=== PATIENT | male | born 1935 | race Caucasian/White ===

== ENCOUNTER 2023-06-16 10:10 | Day surgery (SDC) | payer MEDICARE, SELFPAY ==
[2023-06-03 10:28] VITALS: BMI 31.9
[2023-06-03 10:59] LABS: % Basophils 0.4 % (0-2); % Eosinophils 1.5 % (0-6); % Immature Granulocytes 0.4 % (0-0.5); % Lymphocytes 12.2 % (20.5-51.1); % Monocytes 7.7 % (1.7-9.3); % Neutrophils 77.8 % (42.2-75.2); Absolute Eosinophils 0.1 10^3/uL (0-0.7); Absolute Lymphocytes 1.1 10^3/uL (1.2-3.4); Absolute Monocytes 0.7 10^3/uL (0.1-0.6); Absolute Neutrophils 7.1 10^3/uL (1.4-6.5); Hematocrit 42.8 % (39.0-52.0); Hemoglobin 14.9 g/dL (13.0-18.0); Mean Corp Hgb Conc. 34.8 g/dL (33.0-37.0); Mean Corpuscular Hgb 31.6 pg (27.0-31.0); Mean Corpuscular Volume 90.9 fL (80.0-94.0); Mean Platelet Volume 9.2 fL (7.4-10.4); Nucleated Red Blood Cells % 0 % (-); Platelet Count 241 10^3/uL (130-400); Red Blood Cell Count 4.71 10^6/uL (4.70-6.10); Red Cell Dist. Width 14.3 % (11.5-14.5); White Blood Cell Count 9.1 10^3/uL (4.8-10.8)
[2023-06-03 11:08] LABS: INR 1.29; PT 16.2 Sec (11.4-14.6)
[2023-06-03 11:17] LABS: ALT (SGPT) 21 U/L (0-50); AST (SGOT) 22 U/L (17-59); Albumin 4.3 g/dl (3.5-5.0); Alkaline Phosphatase 78 U/L (38-126); Blood Urea Nitrogen 20 mg/dl (9-20); Calcium 9.6 mg/dl (8.4-10.2); Carbon Dioxide 27 mmol/L (22-30); Chloride 106 mmol/L (98-107); Estimated Creatinine Clearance 66 ml/min; Glucose 72 mg/dl (70-99); Potassium 4.1 mmol/L (3.5-5.1); Sodium 136 mmol/L (135-145); Total Bilirubin 0.8 mg/dl (0.2-1.3); Total Protein 7.5 g/dl (6.3-8.2); eGFR > 60.00
[2023-06-16] VITALS (9 sets, daily range): BP systolic 97–144; BP diastolic 57–86; BMI 31.0
--- NOTE | 2023-06-16 16:17 | ITS.CL.PACE ---
Senior Service Technician - Pacemaker Implant
Pacemaker Implant
Procedure Report:
PACEMAKER IMPLANT REPORT
Primary Care Provider: Dr Les Sexton
Primary meter mechanic: Dr Manpreet Samson
Date of Procedure: May 27, 2023
Procedure:
Implantation of dual-chamber permanent pacemaker utilizing the left bundle branch for conduction system pacing
Indication/Diagnosis:
Non-reversible symptomatic bradycardia due to sinus node dysfunction and second atrioventricular block.
History significant for paroxysmal atrial fibrillation, typical atrial flutter, chronic heart failure with preserved ejection fraction, history of VTE (DVT and PE), polymyalgia rheumatica, sick sinus syndrome, symptomatic bradycardia, obstructive
sleep apnea but patient has not undergone sleep testing, pulmonary hypertension, mixed hypercholesterolemia, primary hypertension, and cognitive impairment, bundle branch block, first-degree AV block, episodes of second-degree type I AV block along
with symptomatic pauses.
He is referred from Dr. Manpreet Samson for implantation of dual-chamber permanent pacemaker.
After informed consent was obtained, 'time out' was called and confirmed, the patient was prepped and draped in a sterile fashion. Lidocaine with epi was used for local anesthesia. Central venous access was obtained via subclavian venipuncture. An
incision was made along the left chest and a pre-pectoral pocket was formed. Using a Seldinger technique and peel-away sheaths, the pacing leads were placed under fluoroscopic guidance.
Fluoroscopy was used to determine likely anatomic site for left bundle branch pacing. The Medtronic C315 sheath was used to deliver the Medtronic 3830 Selectsecure pacing lead with the helix exposed just exposed from the sheath tip during continuous
monitoring when pacemapping the septum during gentle clockwise rotation to obtain a paced QRS morphology of a W pattern in lead V1. Once the suspected optimal site was identified, lead deployment was performed with several rapid rotations as paced
QRS morphology was intermittently monitored until a paced QRS complex in lead V1 demonstrated development of an R wave (Qr)..
Unipolar pacing impedance initially dropped by approximately 100-200 ohms suggesting it had reached the left ventricular subendocardial and with further advancement pacing impedance edvi to a peak of 1300 ohms.
Stable VEgm positive injury current is present throughout lead position and at end of case.
Final unipolar pacing impedance is 1300 Ohms
Unipolar pacing threshold is stable at 2 V @ 0.4 ms.
The patient had pre-existing right bundle branch block morphology at baseline with QRS dur = 136 ms.
Final conduction system paced QRS complex duration is 108 ms
LVAT is 92 ms and peak V5 -> peak V1 timing is 45 ms
Right atrial lead was placed at the RAA.
Once testing (see below) showed adequate and stable function, the leads were secured using the suture sleeves. The pocket was liberally irrigated with antibiotic solution. The leads were connected to the generator header and the leads and
generator were placed within the pocket. Fluoroscopy confirmed stable lead position. The pocket was closed in the typical fashion.
Fluoroscopy was used to guide lead placement.
IMPLANTS:
Medtronic [id number], Left Pectoral
RA: Medtronic 5076-45, RAA
RV: Medtronic [id number], Interventricular septum at LBB
DEVICE TESTING:
Sensing: RA 1.4 mV, RV 10 mV
Capture: RA 1 V@0.4ms, RV 1.75 V@0.4ms
Ohms: RA 475, RV 1349
FINAL PROGRAMMING
Wil Pacing: DDDR 60-130 ppm
COMPLICATIONS:
None
CONCLUSIONS:
1: Successful implant of dual chamber permanent pacemaker utilizing Left Bundle Branch conduction system capture for pacing. Overall findings are most consistent with Left Ventricular Septal capture. Note that both LBB capture and Left Ventricular
Septal capture has been associated with improved left ventricular systolic function via cardiac resynchronization.
RECOMMENDATIONS:
1. Post-op care (tele, CXR, IV abx)
2. In-Office wound check in 5-7 days
Copy to:
Dr Les Sexton
Dr Manpreet Samson
--- NOTE | 2023-06-16 17:01 | PTCARENOTE ---
Patient admitted after PPM placement left upper chest. Pressure dressing left upper chest is dry and intact. Patient very upset upon admission to the unit. Complained about having post EKG done, need for telemetry monitoring and the monitoring of
his VS. All purpose of interventions explained to the patient. Telephoned the patient's and she stated her was upset that he had to stay over. Assisted the patient to the side of the bed and he used the urinal and voided qs. Telephoned
the patient's in his room so he could speak with her. Call eubanks within reach, dinner ordered for the patient.
[2023-06-16] MEDS: DIOVAN 80 MG PO (20:34)
[2023-06-16] MEDS: ANCEF 5 IV (20:36)
[2023-06-16] MEDS: FLUSH (NSS) 1 FLUSH IV (20:37)
[2023-06-17] MEDS: REFRESH EYE DROPS (PF) 1 DROPS OPHTH (02:02)
[2023-06-17 03:38] VITALS: BP 138/78
[2023-06-17] MEDS: ANCEF 5 IV (03:45)
[2023-06-17] MEDS: FLUSH (NSS) 1 FLUSH IV ×2 (03:46→09:24)
[2023-06-17 04:34] LABS: Hematocrit 41.3 % (39.0-52.0); Hemoglobin 14.2 g/dL (13.0-18.0); Mean Corp Hgb Conc. 34.4 g/dL (33.0-37.0); Mean Corpuscular Hgb 31.1 pg (27.0-31.0); Mean Corpuscular Volume 90.4 fL (80.0-94.0); Platelet Count 190 10^3/uL (130-400); Red Blood Cell Count 4.57 10^6/uL (4.70-6.10); Red Cell Dist. Width 13.9 % (11.5-14.5); White Blood Cell Count 7.7 10^3/uL (4.8-10.8)
[2023-06-17 05:14] LABS: Blood Urea Nitrogen 18 mg/dl (9-20); Calcium 9.4 mg/dl (8.4-10.2); Carbon Dioxide 25 mmol/L (22-30); Chloride 103 mmol/L (98-107); Estimated Creatinine Clearance 80 ml/min; Glucose 93 mg/dl (70-99); Magnesium 1.9 mg/dl (1.6-2.3); Potassium 4.2 mmol/L (3.5-5.1); Sodium 136 mmol/L (135-145); eGFR > 60.00
[2023-06-17 07:02] VITALS: BP 130/80
[2023-06-17 08:00] VITALS: BMI 31.0
--- NOTE | 2023-06-17 08:49 | CM ---
Reviewed chart. Met with Mr. Rodríguez to review discharge plans. He states prior to admission he resides with his spouse in a two story home with three steps to enter. He states he has a first floor set-up. He states prior to admission he
ambulates with a single point cane. He states he has a single point cane at home and no other DME in the home. He states he has a prescription plan with [facility] and [facility] and [facility]. The discharge plan is to return home
with his spouse when medically stable.
--- NOTE | 2023-06-17 08:57 | W.PN.CARDCBS ---
Today's Communication / Plan
-
post DC PPM
stable for d/c home today
Impression / Plan
-
Primary Care Provider: Dr Les Sexton
Primary mason apprentice: Dr Manpreet Samson
Impression:
Symptomatic bradycardia/SSS
HTN
HLD
Chronic HFpEF 55-60%
PMR
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
Prostate Cancer with radical prostatectomy
former smoker
06/16/23 Procedure:
Implantation of dual-chamber permanent pacemaker utilizing the left bundle branch for conduction system pacing�
Plan:
post DC PPM, site stable
tele AV dual paced
CXR no PTX
Hold OAC resume on evening Xarelto
continue Amiodarone
Activity restrictions reviewed
inc check 1 week
home today
Progress Note - Carbon Rod Inserter
Subjective
Date of Service: June 17, 2023
no cp, sob
Objective
Labs:
06/17/23 03:44
06/17/23 03:44
Labs
Hgb 14.2 g/dL (13.0-18.0) 06/17/23 03:44
Hct 41.3 % (39.0-52.0) 06/17/23 03:44
Plt Count 190 10^3/uL (130-400) 06/17/23 03:44
PT 16.2 Sec (11.4-14.6) H 06/03/23 10:43
INR 1.29 06/03/23 10:43
Sodium 136 mmol/L (135-145) 06/17/23 03:44
Potassium 4.2 mmol/L (3.5-5.1) 06/17/23 03:44
BUN 18 mg/dl (9-20) 06/17/23 03:44
Creatinine 0.9 mg/dL (0.7-1.3) 06/17/23 03:44
Glucose 93 mg/dl (70-99) 06/17/23 03:44
Vital Signs and I&O:
Vital Signs
Temp Pulse Resp BP Pulse Ox
98.2 F 72 16 130/80 96
06/17/23 07:01 06/17/23 07:30 06/17/23 07:01 06/17/23 07:02 06/17/23 07:01
Vital Signs
Temp Pulse Resp BP Pulse Ox
98.2 F 72 16 130/80 96
06/17/23 07:01 06/17/23 07:30 06/17/23 07:01 06/17/23 07:02 06/17/23 07:01
Intake & Output
06/15/23 06/16/23 06/17/23 06/18/23
06:59 06:59 06:59 06:59
Intake Total 480 / 480
Output Total 1550 / 1550
Balance -1070 / -1070
Physical Exam
Physical Exam
NAD, AOX3
S1, s2, RRR
CTAB, non labored, no wheeze
SNTND bsx4
L CW Aqucel dressing with 2 small marked areas of drainage, no HT
--- NOTE | 2023-06-17 09:14 | PTCARENOTE ---
Received patient this morning sitting oob in the chair with assistance of PCT. Seen by cardiology, pressure dressing removed from left chest wall. Aquacel dressing is dry and intact. Patient for discharge home today.
[2023-06-17] MEDS: DIOVAN 80 MG PO (09:23)
[2023-06-17] MEDS: PACERONE 100 MG PO (09:23)
[2023-06-17] MEDS: ALDACTONE 12.5 MG PO (09:24)
--- NOTE | 2023-06-17 10:24 | W.DS.TRANS ---
DC Summary - Telephone Engineer
-
Discharge Instructions:
Discharge Diagnosis/Procedures Pacemaker implant
Diet Low Cholesterol
Driving Restrictions No driving for 1 week
Bathing Restrictions OK to Shower
Instructions:
Stand-Alone Forms: DC Inst - Implanted Device
Changes to Home Medications: No
Discharge Medications:
DC Medications w/original date entered in [email or web address]
rivaroxaban 20 mg tablet (Xarelto) 20 mg PO QPM Blood clot prevention/tx 09/09/21
ascorbic acid (vitamin C) 500 mg tablet 500 mg PO BID Supplement 05/07/22
cholecalciferol (vitamin D3) 125 mcg (5,000 unit) tablet (Vitamin D3) 125 mcg PO QPM Supplement 07/29/22
valsartan 80 mg tablet 80 mg PO BID Blood pressure 07/29/22
Saccharomyces boulardii 250 mg capsule (Florastor) 250 mg PO DAILY Supplement 10/30/22
cranberry 500 mg capsule 500 mg PO BID Supplement 10/30/22
spironolactone 25 mg tablet 12.5 mg PO DAILY Blood Pressure 10/30/22
acetaminophen 325 mg tablet 650 mg PO Q4HPRN PRN mild pain/OTERO/temp> 100.4F #0 tabs 03/28/23
amiodarone 100 mg tablet 100 mg PO DAILY 05/29/23
omega 2-kyb-vsm-fish oil 1,200 mg (144 mg-216 mg) capsule (Fish Oil) 1 cap PO QPM 05/29/23
quercetin 500 mg capsule 500 mg PO QPM 06/16/23
Home Medication Changes
Pending Results: No
--- NOTE | 2023-06-17 10:43 | PTCARENOTE ---
Reviewed discharge instructions with the patient and his and they state their understanding. Reinforced activity restrictions, patient wished to wear immobilizer home and I showed his how to place it and encouraged him to wear it at
bedtime. assisted the patient with dressing and he was discharged home with his .
== END 2023-06-17 10:56 | disposition home or self-care (01) ==
LOC: CATH 10:10
PROVIDERS: Internal Medicine Cardiovascular Disease; Nurse Practitioner; ATTENDING PHYSICIAN Internal Medicine Cardiovascular Disease; FAMILY PHYSICIAN Internal Medicine Geriatric Medicine
DX: I48.0 Paroxysmal atrial fibrillation (principal); I11.0 Hypertensive heart disease with heart failure; E78.5 Hyperlipidemia, unspecified; I50.30 Unspecified diastolic (congestive) heart failure; M35.3 Polymyalgia rheumatica; M19.90 Unspecified osteoarthritis, unspecified site; Z86.718 Personal history of other venous thrombosis and embolism; Z87.891 Personal history of nicotine dependence; Z85.46 Personal history of malignant neoplasm of prostate; R26.9 Unspecified abnormalities of gait and mobility; Z86.711 Personal history of pulmonary embolism; Z79.01 Long term (current) use of anticoagulants; I49.5 Sick sinus syndrome; I44.1 Atrioventricular block, second degree; I48.3 Typical atrial flutter; I50.32 Chronic diastolic (congestive) heart failure; I27.20 Pulmonary hypertension, unspecified; E78.00 Pure hypercholesterolemia, unspecified; I45.10 Unspecified right bundle-branch block; R06.02 Shortness of breath; R53.83 Other fatigue; G31.84 Mild cognitive impairment of uncertain or unknown etiology
CPT/HCPCS: 33208; 36415; 71045; 80048; 80053; 83735; 85025; 85027; 85610; 93005; C1769; C1785; C1887; C1892; C1898

== ENCOUNTER → 2023-08-14 | Outpatient (REF) | payer MEDICARE, SELFPAY | LOC: DHSLP | PROVIDERS: ATTENDING PHYSICIAN Internal Medicine Cardiovascular Disease; FAMILY PHYSICIAN Internal Medicine Geriatric Medicine | DX: G47.33 Obstructive sleep apnea (adult) (pediatric) (principal) | CPT/HCPCS: 95800 ==

== ENCOUNTER → 2024-02-03 12:12 | Outpatient (REF) | payer MEDICARE, SELFPAY | LOC: RAD 12:12 | PROVIDERS: ATTENDING PHYSICIAN Internal Medicine Cardiovascular Disease; PRIMARYCARE PHYSICIAN Internal Medicine Geriatric Medicine | DX: I48.0 Paroxysmal atrial fibrillation (principal) | CPT/HCPCS: 71046 ==

== ENCOUNTER 2024-02-05 13:31 | Inpatient (IN) | payer MEDICARE, SELFPAY ==
[2024-02-05] VITALS (8 sets, daily range): BP systolic 105–148; BP diastolic 55–67; BMI 32.2; BMI 32.7
[2024-02-05 09:31] LABS: % Basophils 0.3 % (0-2); % Eosinophils 0.4 % (0-6); % Immature Granulocytes 0.5 % (0-0.5); % Lymphocytes 2.3 % (20.5-51.1); % Neutrophils 94.5 % (42.2-75.2); Absolute Eosinophils 0.1 10^3/uL (0-0.7); Absolute Immature Granulocytes 0.1 10^3/uL (0-0.05); Absolute Lymphocytes 0.3 10^3/uL (1.2-3.4); Absolute Monocytes 0.2 10^3/uL (0.1-0.6); Absolute Neutrophils 10.9 10^3/uL (1.4-6.5); Hematocrit 39.9 % (39.0-52.0); Hemoglobin 14.2 g/dL (13.0-18.0); Mean Corp Hgb Conc. 35.6 g/dL (33.0-37.0); Mean Corpuscular Hgb 32.6 pg (27.0-31.0); Mean Corpuscular Volume 91.5 fL (80.0-94.0); Mean Platelet Volume 9.4 fL (7.4-10.4); Nucleated Red Blood Cells % 0 % (-); Platelet Count 174 10^3/uL (130-400); Red Blood Cell Count 4.36 10^6/uL (4.70-6.10); Red Cell Dist. Width 13.2 % (11.5-14.5); White Blood Cell Count 11.5 10^3/uL (4.8-10.8)
[2024-02-05 09:40] LABS: Urine Albumin Trace (Neg - Trace); Urine Bilirubin Negative (Negative); Urine Character Clear (Clear); Urine Color Yellow; Urine Glucose Negative (Negative); Urine Ketone Negative (Negative); Urine Leukocyte Negative (Negative); Urine Nitrite Negative (Negative); Urine Occult Blood Negative (Negative); Urine Urobilinogen Negative (Neg - 1+)
[2024-02-05 09:46] LABS: ALT (SGPT) 21 U/L (0-50); AST (SGOT) 24 U/L (17-59); Albumin 4.4 g/dl (3.5-5.0); Alkaline Phosphatase 76 U/L (38-126); Blood Urea Nitrogen 29 mg/dl (9-20); Calcium 9.4 mg/dl (8.4-10.2); Carbon Dioxide 20 mmol/L (22-30); Chloride 106 mmol/L (98-107); Estimated Creatinine Clearance 65 ml/min; Glucose 95 mg/dl (70-99); Potassium 4.4 mmol/L (3.5-5.1); Sodium 140 mmol/L (135-145); Total Bilirubin 0.9 mg/dl (0.2-1.3); Total Protein 7.4 g/dl (6.3-8.2); eGFR > 60.00
[2024-02-05 10:03] LABS: Lactic Acid 1.7 mmol/L (0.7-2.0)
[2024-02-05] MEDS: TYLENOL 1000 MG PO (10:13)
--- NOTE | 2024-02-05 10:15 | ED.GENMED ---
History of Present Illness
General
Chief Complaint: Fever
Source: patient
Exam Limitations: none
Time Seen by Provider: 02/05/24 09:12
Nursing documentation reviewed up to this point in time: agreed with
History of Present Illness
History of Present Illness:
89-year-old male past medical history of A-fib currently on Xarelto, CHF, hypertension hyperlipidemia presenting to the emergency department today with concerns of shaking chills of the night last night a few hours prior to arrival. Does have
history of UTIs denies specific urinary symptoms also feels generally weak unable to stand up and walk today. Denies specific cough chest pain shortness of breath numbness weakness abdominal pain did have a few episodes of vomiting prior to arrival.
Past History
Past History
ED Past Medical History: Arrthythmia, Cancer (Prostate CA), CHF, HTN and Other (DVT, PE, COVID-19 URI April 2022)
ED Past Surgical History: Orthopedic (Bilateral knee replacements) and Other (Hernia repair, Prostatectomy, Left lid lid loading ( weights to help make the eye lid close)
Social History
Tobacco: Former smoker
Alcohol: Daily
Personal:
Living: with family
Employment: Retired
Review of Systems
Review of Systems
Allergies reviewed?: Yes
All Other Systems: ROS reviewed and negative except as documented in HPI and ROS
Phy Exam
Physical Exam
Physical Exam:
GENERAL: Alert , in no apparent distress
EYE: pupils equal and reactive
NECK: Supple, no significant adenopathy.
ENT: o/p clr, mmm.
CARDIAC: Regular rate and rhythm .
LUNGS: Clear breath sounds bilaterally, no acute respiratory distress, no wheezes/rales/rhonchi
ABDOMEN: Soft, without focal tenderness, no r/g, no cvat
NEUROLOGICAL: Alert and oriented, no focal neuro deficits
SKIN: Warm and dry, skin intact.
MUSCULOSKELETAL: No edema, well perfused.
PSYCH: Normal and appropriate interaction.
Course
Orders/Labs/Results
Orders:
Orders
02/05/24 09:23
Complete Blood Count/With Diff Urgent
Comprehensive Metabolic Panel Urgent
Lactic Acid Urgent
Urinalysis Reflex To Culture Urgent
Date Specimen was Collected: 02/05/24
Time Specimen was Collected: 09:22
02/05/24 09:53
COVID-19 Antigen Urgent
Source: Nasal Swab
Influenza A+B Rapid Molecular Urgent
FRANCO Source: Nasal Swab
Specimen Description:
02/05/24 10:05
Blood Culture Urgent
FRANCO Source: Blood/Venous
Specimen Description:
02/05/24 10:10
Acetaminophen [Tylenol] 1,000 mg PO NOW STA
02/05/24 10:14
Blood Culture Routine
FRANCO Source: Blood/Venous
Specimen Description:
02/05/24 10:27
0.9% Sodium Chloride 500 ml [Nss] 500 ml IV BOLUS
02/05/24 10:32
Chest [CR Chest - 2 Views ] Urgent
Comment:
Reason For Exam: fever
02/05/24 11:33
Azithromycin 500 mg/250 ml [Zithromax Infusion] 500 mg in 250 ml IV NOW
CefTRIAXone [Rocephin] 2,000 mg IV NOW STA
02/05/24 11:34
EKG [Electrocardiogram (*1)] Urgent
Reason for Study: Fatigue / Weakness
EKG- Treatment ONCE
Abnormal Lab Results
02/05/24
09:23
WBC 11.5 H 10^3/uL
(4.8-10.8)
RBC 4.36 L 10^6/uL
(4.70-6.10)
MCH 32.6 H pg
(27.0-31.0)
Abs Immat Gran (auto) 0.1 H 10^3/uL
(0-0.05)
Absolute Neuts (auto) 10.9 H 10^3/uL
(1.4-6.5)
Absolute Lymphs (auto) 0.3 L 10^3/uL
(1.2-3.4)
Neutrophils % 94.5 H %
(42.2-75.2)
Lymphocytes % 2.3 L %
(20.5-51.1)
Carbon Dioxide 20 L mmol/L
(22-30)
BUN 29 H mg/dl
(9-20)
02/05/24 09:23
02/05/24 09:23
Vital Signs
Initial and Last Documented VS:
Initial Vital Signs
BP
145/64
02/05/24 09:11
Last Documented Vital Signs
Temp Pulse Resp BP Pulse Ox
99.1 F 70 32 117/60 94
02/05/24 12:01 02/05/24 12:00 02/05/24 12:00 02/05/24 11:00 02/05/24 12:00
MDM/Problems Addressed
MDM/Problems Addressed:
89-year-old male presenting to the emergency department today with concerns of fevers chills generalized weakness over the past few hours. Upon arrival patient is febrile but otherwise vital signs are normal. Patient does have a slight white count
of 11.5 and a left shift. Otherwise labs unremarkable urinalysis without signs of infection. Chest x-ray showing possible pneumonia which is a new finding from previous x-ray that was performed just a few days ago. Concerning this plan to treat
with IV antibiotics and admit for further management.
*Critical Care Note
Total Time (30-74mins, 75-104mins- exclusive of procedures): Not Applicable
ED Attending Note
-
Portions of this chart may have been created with voice recognition software.� Occasional wrong word or��sound alike� substitutions may have occurred due to the inherent limitations of voice recognition software.
Discharge Plan
Departure
Patient Disposition: Admit
Date of Disposition: 02/05/24
Time of Disposition: 12:37
Admit to: Med/Surg
Admit to doctor: Cindy
Presentation/result/management discussed w/ accepting MD/DO: Hospitalist
Patient with high blood pressure during this ER visit?: No
Condition: Good
Covid-19: Not Applicable
Discharge Problem:
Pneumonia
Prescriptions:
No Action
Xarelto 20 MG tablet
20 mg PO QPM
ascorbic acid (vitamin C) 500 mg Tablet
500 mg PO BID
valsartan 80 mg Tablet
80 mg PO BID
cholecalciferol (vitamin D3) [Vitamin D3] 125 mcg (5,000 unit) Tablet
125 mcg PO QPM
spironolactone 25 mg tablet
12.5 mg PO DAILY
cranberry 500 mg Capsule
500 mg PO BID
amiodarone 100 mg Tablet
100 mg PO DAILY
omega 2-pnx-xmz-fish oil [Fish Oil] 1,200 (144-216) mg Capsule
1 cap PO QPM
quercetin 500 mg Capsule
500 mg PO QPM
bumetanide [Bumex] 1 mg Tablet
1 mg PO DAILY
Referrals:
Les Heredia MD [Family Provider] -
Interventions
Interventions:
*Risk Screen - Suicide Last Done: 02/05/24 09:21
*General Assessment Last Done: 02/05/24 09:21
*Neglect/Abuse Screening Last Done: 02/05/24 09:21
*ED COVID-19 Vaccine History Last Done: 02/05/24 09:20
ED- Neurological Assessment Last Done: 02/05/24 09:21
ED-Skin Assessment Last Done: 02/05/24 09:21
Discharge Date and Time
Print Language: KINYARWANDA
[2024-02-05] MEDS: NSS 500 IV (10:34)
[2024-02-05 10:42] LABS: COVID-19 Antigen Negative (Negative)
[2024-02-05] MEDS: ZITHROMAX INFUSION 250 IV (11:55)
[2024-02-05] MEDS: ROCEPHIN 2000 MG IV (11:55)
--- NOTE | 2024-02-05 12:35 | HPS.HSE ---
Family Physician
-
Family Physician: Les Heredia
Chief Complaint
-
Rigors 3 AM
History of Present Illness
89-year-old male complaining of shaking chills at 3 AM. He also reports feeling weak with difficulty standing up and walking today. He reports he has a chronic cough. He did cough while I was in the room examining him and had a wet sound. He has
generalized weakness with difficulty turning in bed he normally walks with a cane. He denies sore throat, headache, chest pain, palpitations, shortness of breath, abdominal pain, nausea, vomiting, diarrhea, urinary symptoms. He has past medical
history of A-fib on Xarelto, CHFpEF 55-60%, pacemaker dual-chamber 06/16/2023, HTN, prostate cancer with radical prostatectomy, recurrent UTIs, DVT/PE, COVID-08 May 2022, former smoker, prior alcohol abuse 1.5 years ago.
Medical History
Past Medical History
Past Medical History: Reports Other
Additional Past Medical History:
A-fib on Xarelto
CHFpEF 55-60%
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
HTN
Daily alcohol use
DVT/PE
Prostate cancer with radical prostatectomy
recurrent UTIs
COVID-08 May 2022
former smoker,
Past Surgical History: Reports Other
Additional Past Surgical History:
Bilateral knee replacements
Hernia repair
Prostatectomy
Left eyelid loading surgery to help lid close
Social History
Tobacco: Former Smoker (10 years 1/2 ppd quit 50 years ago)
Alcohol: Former (stopped 1.5 years ago)
Drug: None
Family History
Family History: Other (Father complications COPD, alcohol abuse mother unsure)
Allergies / Home Medications
Allergies reflects when Allergies were last updated in [email or web address].
Home Medications with original date entered in [email or web address]
Allergy/Medication List:
Allergies
Allergy/AdvReac Type Severity Reaction Status Date / Time
epoxy resin Allergy facial Verified 06/16/23 10:47
swelling
Sulfa (Sulfonamide Allergy Hives Verified 06/16/23 10:47
Antibiotics)
Home Medications
rivaroxaban 20 mg tablet (Xarelto) 20 mg PO QPM Blood clot prevention/tx 09/09/21
ascorbic acid (vitamin C) 500 mg tablet 500 mg PO BID Supplement 05/07/22
cholecalciferol (vitamin D3) 125 mcg (5,000 unit) tablet (Vitamin D3) 125 mcg PO QPM Supplement 07/29/22
valsartan 80 mg tablet 80 mg PO BID Blood pressure 07/29/22
cranberry 500 mg capsule 500 mg PO BID Supplement 10/30/22
spironolactone 25 mg tablet 12.5 mg PO DAILY Blood Pressure 10/30/22
amiodarone 100 mg tablet 100 mg PO DAILY 05/29/23
omega 9-wpf-kvg-fish oil 1,200 mg (144 mg-216 mg) capsule (Fish Oil) 1 cap PO QPM 05/29/23
quercetin 500 mg capsule 500 mg PO QPM 06/16/23
bumetanide 1 mg tablet 1 mg PO DAILY 02/05/24
Review of Systems
-
History Source: Patient
A 12 point ROS was completed and negative except as noted: Yes
Constitutional: Reports Fatigue and Chills
EENT: Denies Sore Throat or Runny Nose
Respiratory: Reports Cough (Nonproductive); Denies Trouble Breathing
Cardiac: Denies Chest Pain, Diaphoresis, Palpitations or Syncope
Abdomen/GI: Denies Abdominal Pain, Nausea, Vomiting, Diarrhea, Constipated, Bloody Stools, Black Stools or Anorexia
: Denies Dysuria, Frequency, Flank Pain, Incontinence, Difficulty Voiding, Urgency, Bleeding or Dark Urine
Musculoskeletal: Denies Joint Pain or Edema
Skin: Denies Itching or Rash
Neurological: Reports Weakness (Generalized); Denies Dizzy, Headache or Numbness
Endocrine: Reports No Symptoms
Hematologic/Lymphatic: Reports No Symptoms
Psych: Reports Calm
Physical Exam
Vital Signs
Vital Signs
Temp Pulse Resp BP Pulse Ox
99.1 F 70 32 117/60 94
02/05/24 12:01 02/05/24 12:00 02/05/24 12:00 02/05/24 11:00 02/05/24 12:00
Physical Exam
General: Comfortable, Conversant, Chills and Other (Generalized weakness with difficulty turning self in bed)
HEENT: NormoCephalic, Anicteric, Moist mucous membranes, PERRLA, [place] Conjunctivae and No Ptosis
Respiratory: Rhonchi (Bilateral lung bases); No Wheezes or Rales
Cardiac: S1/S2 and Regular Rhythm; No Murmur, Rub, Gallop or Peripheral Edema
Breast: Deferred by me
GI: Soft, Non Tender, Non Distended, Normal Bowel Sounds and No Hepatosplenomegaly
Rectal: Deferred by Provider
Genito-urinary: Deferred by me
Musculoskeletal: No Clubbing, No Cyanosis and No Edema
Skin: Warm and Dry; No Rash
Neuro: AO x 3 and Other (TIMBI-SHA SHOSHONE with chronic hearing aids in place, generalized weakness with difficulty turning self in bed); No Slurred Speech, Facial Droop or Tremors
Psych: Calm
Laboratory Results
-
02/05/24 09:23
02/05/24 09:23
Laboratory Results
Lactic Acid 1.7 mmol/L (0.7-2.0) 02/05/24 09:23
Total Bilirubin 0.9 mg/dl (0.2-1.3) 02/05/24 09:23
AST 24 U/L (17-59) 02/05/24 09:23
ALT 21 U/L (0-50) 02/05/24 09:23
Alkaline Phosphatase 76 U/L (38-126) 02/05/24 09:23
Impression/Plan
-
Impression/plan:
Admit to telemetry
#Acute hypoxic respiratory insufficiency secondary to bilateral lower lobe PNA
#Generalized weakness secondary to bilateral lobe PNA/volume depletion
#Former smoker 10 years a pack a day quit 50 years ago
-92% RA, 2 L NC supportive care
WBC 11.5 with left shift, temp 99.1, HR 70, 117/60
COVID-negative
-DuoNebs as needed
-Incentive spirometry
-Sputum culture, blood culture x 1, lactic acid
-IV Rocephin, IV Zithromax
-IV NSS 80 cc an hour was given 1 L in ER concern for volume depletion elevated bun 29
-PT/OT/case management consult
CXR: Large amount of opacity in the basilar segments of the lower lobes of both lungs possibilities include bilateral lower lobe pneumonia, subsegmental atelectasis.
Mild cardiomegaly.
Left-sided dual-chamber cardiac pacemaker.
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
-
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
-I/O, daily weights
-Will hold Bumex 1 mg daily, spironolactone 12.5 mg daily -given soft BP and elevated bun
2D echo 09/09/2022: EF 55 to 60%, normal LVS/LV SF, no wall abnormalities, mild TR. Moderate pulm HTN pulm arterial pressure 50-55 mmHg
-Follows with [facility]
#A-fib paroxysmal
-Continue Xarelto, continue amiodarone 100 mg daily
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
#HTN-benign
BP 117/60
-Continue valsartan 80 mg twice daily with hold parameters
#Prior alcohol abuse
-Stopped 1.5 years ago
#DVT/PE hx
-Patient is on Xarelto for paroxysmal A-fib
Other PMH:
Prostate cancer with radical prostatectomy
recurrent UTIs
COVID-08 May 2022
DVT prophylaxis
Continue SUPERVISOR NET MAKING Xarelto
Full code
--- NOTE | 2024-02-05 13:26 | W.PN.UPDATE ---
Update Note
Progress Note Update
This is an addendum to the H&P written by Leyda Walls on 02/05/2024. Patient seen and examined independently with COMPUTER SUPPORT SPECIALIST.
89-year-old male past medical history of atrial fibrillation on Xarelto with pacemaker, CHF, hypertension, hyperlipidemia, prostate cancer status post prostatectomy, DVT/PE, presenting with rigors, cough.
Patient septic with fever, leukocytosis secondary to bilateral lower lobe pneumonia. Check sputum, blood culture. IV fluids. Ceftriaxone/azithromycin. Hold antihypertensive medications.
[2024-02-05] MEDS: NSS 1000 IV (16:22)
[2024-02-05] MEDS: VITAMIN D3 (cholecalciferol) 125 MCG PO (17:01)
[2024-02-05] MEDS: XARELTO 20 MG PO (17:01)
[2024-02-05] MEDS: DIOVAN 80 MG PO (20:14)
[2024-02-05] MEDS: TYLENOL 650 MG PO (20:14)
[2024-02-05] MEDS: VITAMIN C 500 MG PO (20:14)
[2024-02-06] VITALS (8 sets, daily range): BP systolic 110–134; BP diastolic 58–84; PULSE 70–100; O2SAT 93–97; BMI 31.5
[2024-02-06 08:24] LABS: % Basophils 0.2 % (0-2); % Eosinophils 0.2 % (0-6); % Immature Granulocytes 0.3 % (0-0.5); % Lymphocytes 5.2 % (20.5-51.1); % Monocytes 7.2 % (1.7-9.3); % Neutrophils 86.9 % (42.2-75.2); Absolute Lymphocytes 0.6 10^3/uL (1.2-3.4); Absolute Monocytes 0.8 10^3/uL (0.1-0.6); Absolute Neutrophils 9.4 10^3/uL (1.4-6.5); Hematocrit 34.8 % (39.0-52.0); Mean Corp Hgb Conc. 34.5 g/dL (33.0-37.0); Mean Corpuscular Hgb 31.2 pg (27.0-31.0); Mean Corpuscular Volume 90.4 fL (80.0-94.0); Mean Platelet Volume 9.3 fL (7.4-10.4); Nucleated Red Blood Cells % 0 % (-); Platelet Count 147 10^3/uL (130-400); Red Blood Cell Count 3.85 10^6/uL (4.70-6.10); Red Cell Dist. Width 13.6 % (11.5-14.5); White Blood Cell Count 10.8 10^3/uL (4.8-10.8)
[2024-02-06 09:07] LABS: ALT (SGPT) 24 U/L (0-50); AST (SGOT) 28 U/L (17-59); Albumin 3.5 g/dl (3.5-5.0); Alkaline Phosphatase 62 U/L (38-126); Blood Urea Nitrogen 25 mg/dl (9-20); Carbon Dioxide 21 mmol/L (22-30); Chloride 106 mmol/L (98-107); Estimated Creatinine Clearance 71 ml/min; Glucose 100 mg/dl (70-99); Potassium 4.2 mmol/L (3.5-5.1); Sodium 138 mmol/L (135-145); Total Bilirubin 0.7 mg/dl (0.2-1.3); Total Protein 6.2 g/dl (6.3-8.2); eGFR > 60.00
[2024-02-06] MEDS: PACERONE 100 MG PO (09:53)
[2024-02-06] MEDS: DIOVAN 80 MG PO ×2 (09:53→19:49)
[2024-02-06] MEDS: VITAMIN C 500 MG PO ×2 (09:53→19:49)
--- NOTE | 2024-02-06 11:37 | CM ---
Initial assessment was completed with pt at bedside.
Pt was last admitted in 03/2024 where he dc'd to home with [facility].
At baseline, Victorino lives with his in a 2 story home with 2ste from the front and 3ste from the back. Pt has a 1st floor living level.
At baseline, pt is indep with the use of a cane for ambulation and driving. Pt's aides with IADLs.
Pt also has a Rollator, RW, shower chair and w/c.
Pt has been to [facility] in the past and has used [facility] multiple times. Pt agreeable to VN if recommended.
PCP; Les Heredia
Pharm; [facility]
PLAN; Home with recommendation of VN
[2024-02-06] MEDS: ZITHROMAX INFUSION 250 IV (13:54)
[2024-02-06] MEDS: ROCEPHIN 1000 MG IV (13:55)
[2024-02-06] MEDS: STERILE WATER FOR INJECTION 10 ML IV (13:55)
--- NOTE | 2024-02-06 14:42 | PTOTSP ---
Speech therapy
Presentation: Patient was oriented and willing to participate in the session. Patient's speech and language appeared to be WNL during conversation.
Previous ST: 07/31/22 VSE: OCCUPATIONAL THERAPY ASSISTANT recommended regular consistency solids and thin liquids. See note for details.
Swallowing Function: Patient was seen with several bites of cracker, mechanical soft, and advanced mechanical soft solids in addition to thin liquids (via straw) in which patient appeared to tolerate as he did not exhibit any overt clinical s/sx of
aspiration or difficulty with mastication/ manipulation.
Complaints: Per patient's , patient has a hx of impulsively eating and drinking quickly which often results in coughing and/or choking episodes. When patient eats and drinks slowly, he does not have these difficulties.
Given the above information, recommend continuation of IDDSI 6 and thin liquids in hopes to reduce aspiration risk 2/2 his impulsive self feeding.
Recommendations:
1) Continuation of IDDSI level 6 and thin liquids
2) Aspiration precautions
3) Small, single bites and sips
4) Medications as tolerated (per RN whole with thin liquids)
5) Consideration of VSE if clinically indicated
Plan: OCCUPATIONAL THERAPY ASSISTANT will continue to follow; pending hospitalization.
--- NOTE | 2024-02-06 14:43 | W.PN.HOSP.TC ---
Today's Communication/Plan
-
ID consult
CT scan chest/abd/pelvis
stop Azithromycin, continue Rocephin, pending E. Coli C&S
change diet
Speech Therapy consult, reviewed, apparently did well
Assessment / Plan
Assessment / Plan
#Acute hypoxic respiratory insufficiency secondary to bilateral lower lobe PNA
better, SaO2 97% on room air
#Generalized weakness secondary to bilateral lobe PNA/volume depletion
#Former smoker 10 years a pack a day quit 50 years ago
WBC 11.5-->10.8
COVID-negative
-DuoNebs as needed
-Incentive spirometry
-Sputum culture, blood culture x 1 E.Coli, lactic acid 1.7, UA negative
-IV Rocephin, IV Zithromax
-IV NSS 80 cc an hour was given 1 L in ER concern for volume depletion elevated bun 29
-PT/OT/case management consult
E. Coli bacteremia from aspiration
will order CT scan chest/abd/pelvis without contrast
CXR: Large amount of opacity in the basilar segments of the lower lobes of both lungs possibilities include bilateral lower lobe pneumonia, subsegmental atelectasis.
Mild cardiomegaly.
Left-sided dual-chamber cardiac pacemaker.
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
-
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
-I/O, daily weights
-Will hold Bumex 1 mg daily, spironolactone 12.5 mg daily -given soft BP and elevated bun
2D echo 09/09/2022: EF 55 to 60%, normal LVS/LV SF, no wall abnormalities, mild TR. 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
-Follows with [facility]
#A-fib paroxysmal
-Continue Xarelto, continue amiodarone 100 mg daily
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
#HTN-benign
BP 117/60
-Continue valsartan 80 mg twice daily with hold parameters
#Prior alcohol abuse
-Stopped 1.5 years ago
#DVT/PE hx
-Patient is on Xarelto for paroxysmal A-fib
Other PMH:
Prostate cancer with radical prostatectomy
recurrent UTIs
COVID-08 May 2022
DVT prophylaxis
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
Full code
Anticipated Discharge: > 48 hours
Subjective/Interval History
-
Date of Service: February 06, 2024
Awake, alert
Objective Data
-
Labs:
Laboratory Results
02/06/24
07:46
WBC 10.8
Hgb 12.0 L
Hct 34.8 L
Plt Count 147
Sodium 138
Potassium 4.2
Chloride 106
Carbon Dioxide 21 L
BUN 25 H
Creatinine 1.0
Glucose 100 H
Calcium 9.0
Total Bilirubin 0.7
AST 28
ALT 24
Alkaline Phosphatase 62
Vital Signs:
Vital Signs
Temp Pulse Resp BP Pulse Ox
98.9 F 74 18 112/65 97
02/06/24 11:14 02/06/24 11:14 02/06/24 11:14 02/06/24 11:14 02/06/24 11:14
I&O
02/05/24 02/06/24 02/07/24
06:59 06:59 06:59
Intake Total 1680 / 1680
Output Total 100 / 100
Balance 1580 / 1580
Review of Systems
-
History Source: Patient and Family ( at bedside)
Constitutional: Reports No Symptoms; Denies Fever (last fever 02/04 19:00, 100.7)
EENT: Reports No Symptoms Reported
Respiratory: Reports Cough (occassional); Denies Trouble Breathing
Abdomen/GI: Reports No Symptoms
Physical Exam
-
General: Well Developed, Well Nourished and No Apparent Distress
HEENT: Normocephalic and Atraumatic
Respiratory: Clear to Auscultation and Rales (bibasilar rales, Lt>Rt); Negative Wheezes (raspy breath sounds) or Rhonchi
Cardiac: Regular Rhythm and S1/S2; Negative Murmur
GI: Soft, Nontender, Nondistended and Normal Bowel Sounds
Musculoskeletal: No Clubbing, No Cyanosis, No Edema and Clubbing
Neuro: Awake
[2024-02-06] MEDS: XARELTO 20 MG PO (18:31)
[2024-02-06] MEDS: VITAMIN D3 (cholecalciferol) 125 MCG PO (18:31)
[2024-02-06] MEDS: DESENEX/MITRAZOL/ZEASORB 1 APPLIC TOPICAL (19:49)
[2024-02-07 03:00] VITALS: BP 131/76
[2024-02-07 06:16] VITALS: BMI 30.8
[2024-02-07 07:00] VITALS: BP 158/80
[2024-02-07 07:10] LABS: % Basophils 0.4 % (0-2); % Eosinophils 3.5 % (0-6); % Immature Granulocytes 0.3 % (0-0.5); % Lymphocytes 12.3 % (20.5-51.1); % Monocytes 12.6 % (1.7-9.3); % Neutrophils 70.9 % (42.2-75.2); Absolute Eosinophils 0.2 10^3/uL (0-0.7); Absolute Lymphocytes 0.8 10^3/uL (1.2-3.4); Absolute Monocytes 0.9 10^3/uL (0.1-0.6); Absolute Neutrophils 4.9 10^3/uL (1.4-6.5); Hematocrit 35.3 % (39.0-52.0); Hemoglobin 12.1 g/dL (13.0-18.0); Mean Corp Hgb Conc. 34.3 g/dL (33.0-37.0); Mean Corpuscular Volume 90.5 fL (80.0-94.0); Mean Platelet Volume 9.9 fL (7.4-10.4); Nucleated Red Blood Cells % 0 % (-); Platelet Count 151 10^3/uL (130-400); Red Cell Dist. Width 13.6 % (11.5-14.5); White Blood Cell Count 6.8 10^3/uL (4.8-10.8)
[2024-02-07 07:29] LABS: ALT (SGPT) 24 U/L (0-50); AST (SGOT) 27 U/L (17-59); Albumin 3.5 g/dl (3.5-5.0); Alkaline Phosphatase 60 U/L (38-126); Blood Urea Nitrogen 26 mg/dl (9-20); Calcium 8.8 mg/dl (8.4-10.2); Carbon Dioxide 20 mmol/L (22-30); Chloride 106 mmol/L (98-107); Estimated Creatinine Clearance 70 ml/min; Glucose 91 mg/dl (70-99); Potassium 4.2 mmol/L (3.5-5.1); Sodium 138 mmol/L (135-145); Total Bilirubin 0.5 mg/dl (0.2-1.3); Total Protein 6.3 g/dl (6.3-8.2); eGFR > 60.00
[2024-02-07] MEDS: TYLENOL 650 MG PO (08:23)
[2024-02-07] MEDS: DESENEX/MITRAZOL/ZEASORB 1 APPLIC TOPICAL ×2 (08:26→20:06)
[2024-02-07] MEDS: PACERONE 100 MG PO (08:27)
[2024-02-07] MEDS: VITAMIN C 500 MG PO ×2 (08:28→20:05)
[2024-02-07] MEDS: DIOVAN 80 MG PO ×2 (08:28→19:58)
[2024-02-07 11:00] VITALS: BP 105/63
[2024-02-07] MEDS: ROCEPHIN 1000 MG IV (12:02)
[2024-02-07] MEDS: STERILE WATER FOR INJECTION 10 ML IV (12:02)
--- NOTE | 2024-02-07 12:54 | W.PN.HOSP.TC ---
Today's Communication/Plan
-
ID consult
Await results of E.Coli sensitivities
Assessment / Plan
Assessment / Plan
#Acute hypoxic respiratory insufficiency secondary to bilateral lower lobe PNA
better, SaO2 97% on room air
#Generalized weakness secondary to bilateral lobe PNA/volume depletion
#Former smoker 10 years a pack a day quit 50 years ago
WBC 11.5-->10.8-->6.8
COVID-negative
-DuoNebs as needed
-Incentive spirometry
-Sputum culture, blood culture x 1 E.Coli, lactic acid 1.7, UA negative
-IV Rocephin, IV Zithromax
-IV NSS 80 cc an hour was given 1 L in ER concern for volume depletion elevated bun 29-->26
will stop IVF
-PT/OT
case management consult
E. Coli bacteremia from aspiration
call placed and discussed with Dr. Cooley.
Azithromycin stopped, continue Ceftriaxone
CT scan chest/abd/pelvis without contrast completed, await report
CXR: Large amount of opacity in the basilar segments of the lower lobes of both lungs possibilities include bilateral lower lobe pneumonia, subsegmental atelectasis.
Mild cardiomegaly.
Left-sided dual-chamber cardiac pacemaker.
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
-
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
-I/O, daily weights
-Will hold Bumex 1 mg daily, spironolactone 12.5 mg daily -given soft BP 105-158/63-80
2D echo 09/09/2022: EF 55 to 60%, normal LVS/LV SF, no wall abnormalities, mild TR. 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
-Follows with [facility]
Speech Therapy consult: 1) Continuation of IDDSI level 6 and thin liquids
2) Aspiration precautions
3) Small, single bites and sips
4) Medications as tolerated (per RN whole with thin liquids)
5) Consideration of VSE if clinically indicated
reviewed with pt in front of , importance of careful eating, eat slowly and be attentive, was stressed to pt
#A-fib paroxysmal
-Continue Xarelto, continue amiodarone 100 mg daily
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
#HTN-benign
BP 117/60
-Continue valsartan 80 mg twice daily with hold parameters
#Prior alcohol abuse
-Stopped 1.5 years ago
#DVT/PE hx
-Patient is on Xarelto for paroxysmal A-fib
Other PMH:
Prostate cancer with radical prostatectomy
recurrent UTIs
COVID-08 May 2022
DVT prophylaxis
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
Full code
reviewed with at bedside
recheck labs in AM
Anticipated Discharge: 24 - 48 hours
Subjective/Interval History
-
Date of Service: February 07, 2024
Awake, alert, sitting in chair
Objective Data
-
Labs:
Laboratory Results
02/07/24
06:05
WBC 6.8
Hgb 12.1 L
Hct 35.3 L
Plt Count 151
Sodium 138
Potassium 4.2
Chloride 106
Carbon Dioxide 20 L
BUN 26 H
Creatinine 1.0
Glucose 91
Calcium 8.8
Total Bilirubin 0.5
AST 27
ALT 24
Alkaline Phosphatase 60
Vital Signs:
Vital Signs
Temp Pulse Resp BP Pulse Ox
98.6 F 72 17 105/63 100
02/07/24 11:00 02/07/24 11:00 02/07/24 11:00 02/07/24 11:00 02/07/24 11:00
I&O
02/06/24 02/07/24 02/08/24
06:59 06:59 06:59
Intake Total 1680 / 1680 1080 / 1080
Output Total 100 / 100
Balance 1580 / 1580 1080 / 1080
Review of Systems
-
History Source: Patient and Family ( at bedside)
Constitutional: Reports No Symptoms; Denies Fever (last fever 02/04 19:00, 100.7)
EENT: Reports No Symptoms Reported
Respiratory: Reports Cough (occasional); Denies Trouble Breathing
Cardiac: Denies Chest Pain
Abdomen/GI: Reports No Symptoms
Physical Exam
-
General: Well Developed, Well Nourished and No Apparent Distress
HEENT: Normocephalic and Atraumatic
Respiratory: Clear to Auscultation and Rales (bibasilar rales, Lt>Rt); Negative Wheezes (raspy breath sounds) or Rhonchi
Cardiac: Regular Rhythm and S1/S2; Negative Murmur
GI: Soft, Nontender, Nondistended and Normal Bowel Sounds
Musculoskeletal: No Clubbing, No Cyanosis, No Edema and Clubbing
Neuro: Awake, Alert and Oriented
[2024-02-07 15:00] VITALS: BP 124/69
--- NOTE | 2024-02-07 15:39 | CON.ID ---
Consultation
-
Date/Time Consultation Requested: 02/06/24 15:07
Date/Time Consultation Performed: 02/07/24 15:39
Requesting Provider: Dr Christian
Performing Provider: Dr Cooley
Reason for Consultation: Aspiration pneumonia
Chief Complaint / Past History
Chief Complaint
rigors woke up from sleep
History of Present Illness
Mr Rodríguez is an 89 year old male with history of CHF, daily EtOH use, chronic cough who presented here from home on 02/04 for waking up with rigors, weakness but no sore throat, headache, chest pain, palpitations, shortness of breath, abdominal
pain, nausea, vomiting, diarrhea or urinary symptoms.
Since arrival here tmax was initially 101.2 now afebrile, bp stable, saturating well on room air, wbc initially 11.5 now 6.8, hgb 12.1, plt 151, L shift on arrival has now resolved, cr 1.0, lactic acid 1.7, t bili 0.5, ast 27, alt 24, alk phos 60,
ua negative, covid ag neg, CXR 02/04: large bailar opacities, 02/06 CT c/a/p no evidence of pneumonia, severe diverticulosis, moderate bilateral perinephric fat stranding, calcified seroma in the R pelvic side wall, speach eval: dysphagia diet
recommended, currently on ceftriaxone, 'I feel better'
Past History
Additional Past Medical History:
A-fib on Xarelto
CHFpEF 55-60%
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
HTN
Daily alcohol use
DVT/PE
Prostate cancer with radical prostatectomy
recurrent UTIs
COVID-08 May 2022
former smoker,
Additional Past Surgical History:
Bilateral knee replacements
Hernia repair
Prostatectomy
Left eyelid loading surgery to help lid close
Allergy History:
epoxy resin Allergy (Verified 06/16/23 10:47)
facial swelling
Sulfa (Sulfonamide Antibiotics) Allergy (Verified 06/16/23 10:47)
Hives
Medications Reviewed: Yes
Social History
Tobacco: Former Smoker
Alcohol: Former (stopped 1.5 years ag)
Drug: None
Family History
Family History: Not Pertinent
Review of Systems
Review of Systems
General: Fever and Chills
All systems: All other systems were reviewed and were negative
Vital Signs
Temp Pulse Resp BP Pulse Ox
98.6 F 72 17 105/63 100
02/07/24 11:00 02/07/24 11:00 02/07/24 11:00 02/07/24 11:00 02/07/24 11:00
Physical Exam
Physical Exam
Constitutional: No Acute Distress
Cardiovascular: Regular Rate and S1/S2; Negative Murmur or Rub
Pulmonary: Clear and Symmetric; Negative Wheezes, Rales or Rhonchi
Gastrointestinal: Soft, Non Tender, Distended, Normal Bowel Sounds, No Rebound and No Guarding
Skin: Warm and Dry; Negative Rash or Jaundice
Neurological: Awake
Lab / Diagnostic Study Results
02/07/24 06:05
02/07/24 06:05
Abs Immat Gran (auto) 0.0 10^3/uL (0-0.05) 02/07/24 06:05
Absolute Neuts (auto) 4.9 10^3/uL (1.4-6.5) 02/07/24 06:05
Absolute Lymphs (auto) 0.8 10^3/uL (1.2-3.4) L 02/07/24 06:05
Absolute Monos (auto) 0.9 10^3/uL (0.1-0.6) H 02/07/24 06:05
Absolute Basos (auto) 0.0 10^3/uL (0-0.2) 02/07/24 06:05
Immature Gran % 0.3 % (0-0.5) 02/07/24 06:05
Neutrophils % 70.9 % (42.2-75.2) 02/07/24 06:05
Lymphocytes % 12.3 % (20.5-51.1) L 02/07/24 06:05
Monocytes % 12.6 % (1.7-9.3) H 02/07/24 06:05
Eosinophils % 3.5 % (0-6) 02/07/24 06:05
Basophils % 0.4 % (0-2) 02/07/24 06:05
Lactic Acid 1.7 mmol/L (0.7-2.0) 02/05/24 09:23
Microbiology Results
Micro:
02/05/24 10:14 Blood Culture - Preliminary
Blood/Venous No Growth in 48 hours- Final report to follow
02/05/24 10:05 Blood Culture - Preliminary
Blood/Venous Escherichia coli
Gram Stain - Preliminary
02/05/24 09:53 Influenza Types A & B (NIKO) - Final
Nasal Swab Negative for Influenza A & B, NAAT
Negative results must be combined with clinical observations
and patient history.
Nucleic Acid Amplification test (NAAT)performed on the
[employer] platform.
Assessment / Plan
E coli Bacteremia
Possible aspiration vs translocation
- one of two blood cultures with E coli
- CT c/a/p on infiltrates seen, diverticulosis noted
- aspiration noted on swallow eval
- last colonoscopy 2017: mild chronic nonspecific colitis, tubular adenomas
- agree with ceftriaxone pending sensitivities
[2024-02-07] MEDS: VITAMIN D3 (cholecalciferol) 125 MCG PO (17:31)
[2024-02-07] MEDS: XARELTO 20 MG PO (17:31)
[2024-02-07 19:29] VITALS: BP 128/77
[2024-02-07 23:31] VITALS: BP 128/64
[2024-02-08 03:22] VITALS: BP 148/73
[2024-02-08 06:00] VITALS: BMI 31.3
[2024-02-08 07:24] LABS: % Basophils 0.5 % (0-2); % Eosinophils 4.5 % (0-6); % Immature Granulocytes 0.5 % (0-0.5); % Lymphocytes 15.6 % (20.5-51.1); % Monocytes 10.8 % (1.7-9.3); % Neutrophils 68.1 % (42.2-75.2); Absolute Eosinophils 0.3 10^3/uL (0-0.7); Absolute Monocytes 0.7 10^3/uL (0.1-0.6); Absolute Neutrophils 4.4 10^3/uL (1.4-6.5); Hematocrit 37.1 % (39.0-52.0); Hemoglobin 13.1 g/dL (13.0-18.0); Mean Corp Hgb Conc. 35.3 g/dL (33.0-37.0); Mean Corpuscular Hgb 32.3 pg (27.0-31.0); Mean Corpuscular Volume 91.4 fL (80.0-94.0); Mean Platelet Volume 10.6 fL (7.4-10.4); Nucleated Red Blood Cells % 0 % (-); Platelet Count 152 10^3/uL (130-400); Red Blood Cell Count 4.06 10^6/uL (4.70-6.10); Red Cell Dist. Width 13.2 % (11.5-14.5); White Blood Cell Count 6.4 10^3/uL (4.8-10.8)
[2024-02-08 07:38] VITALS: BP 135/87
[2024-02-08 07:53] LABS: ALT (SGPT) 23 U/L (0-50); AST (SGOT) 27 U/L (17-59); Albumin 3.5 g/dl (3.5-5.0); Alkaline Phosphatase 61 U/L (38-126); Blood Urea Nitrogen 21 mg/dl (9-20); Carbon Dioxide 24 mmol/L (22-30); Chloride 105 mmol/L (98-107); Estimated Creatinine Clearance 71 ml/min; Glucose 92 mg/dl (70-99); Potassium 4.2 mmol/L (3.5-5.1); Sodium 138 mmol/L (135-145); Total Bilirubin 0.4 mg/dl (0.2-1.3); Total Protein 6.2 g/dl (6.3-8.2); eGFR > 60.00
[2024-02-08] MEDS: DESENEX/MITRAZOL/ZEASORB 1 APPLIC TOPICAL (08:24)
[2024-02-08] MEDS: PACERONE 100 MG PO (08:24)
[2024-02-08] MEDS: VITAMIN C 500 MG PO (08:25)
[2024-02-08] MEDS: DIOVAN 80 MG PO (08:25)
--- NOTE | 2024-02-08 10:40 | W.PN.ID1 ---
Date of Service
Date of Service: February 08, 2024
Today's Communication
- start cefdinir to complete a 7 day course - 4 more days
follow up with PCP
Assessment / Plan
E coli Bacteremia
Possible aspiration vs translocation
- one of two blood cultures with E coli
- CT c/a/p no infiltrates seen, diverticulosis noted; though perinephric fat stranding reported clinically no symptoms and UA negative
- aspiration noted on swallow eval
- last colonoscopy 2017: mild chronic nonspecific colitis, tubular adenomas
- start cefdinir to complete a 7 day course - 4 more days
follow up with PCP
Chief Complaint
-: Bacteremia
Subjective / Review of Systems
afebrile
bp stable
no leukocytosis of L shift
Vital Signs / Physical Exam
Vital Signs
Vital Signs
Temp Pulse Resp BP Pulse Ox
97.7 F 71 17 135/87 96
02/08/24 07:38 02/08/24 07:38 02/08/24 07:38 02/08/24 07:38 02/08/24 08:00
Physical Exam
Constitutional: No Acute Distress
Cardiovascular: Regular Rate and S1/S2; Negative Murmur or Rub
Pulmonary: Clear and Symmetric; Negative Wheezes or Rales
Gastrointestinal: Soft, Non Tender, Non Distended and Normal Bowel Sounds
Genito-Urinary: Negative CVA Tenderness
Skin: Warm and Dry; Negative Rash or Jaundice
Objective Data
Lab Data
Lab Results
02/08/24 06:21
02/08/24 06:21
Estimated Creat Clear 71 ml/min 02/08/24 06:21
Lactic Acid 1.7 mmol/L (0.7-2.0) 02/05/24 09:23
Total Bilirubin 0.4 mg/dl (0.2-1.3) 02/08/24 06:21
AST 27 U/L (17-59) 02/08/24 06:21
ALT 23 U/L (0-50) 02/08/24 06:21
Alkaline Phosphatase 61 U/L (38-126) 02/08/24 06:21
Most recent labs reviewed.
Blood Culture Preliminary 02/08/24-923
Positive for Escherichia coli by [employer]
Nucleic Acid Methodology.
Organism 1 Escherichia coli
1. Escherichia coli
M.I.C. RX
--------- ---
Amoxicillin/Potas. Clavulanate 16/8 I
Ampicillin >16 R
Ampicillin/Sulbactam 16/8 I
Aztreonam <=4 S
Cefazolin 4 I
Cefepime <=2 S
Ceftazidime <=1 S
Ceftriaxone <=1 S
Ertapenem <=0.5 S
Ciprofloxacin >2 R
Gentamicin <=2 S
Meropenem <=1 S
Piperacillin/Tazobactam <=8 S
Tetracycline >8 R
Tobramycin >8 R
Trimethoprim/Sulfamethoxazole >2/38 R
Micro Results:
02/05/24 10:14 Blood Culture - Preliminary
Blood/Venous No Growth in 72 hours- Final report to follow
02/05/24 10:05 Blood Culture - Preliminary
Blood/Venous Escherichia coli
Gram Stain - Preliminary
02/05/24 09:53 Influenza Types A & B (NIKO) - Final
Nasal Swab Negative for Influenza A & B, NAAT
Negative results must be combined with clinical observations
and patient history.
Nucleic Acid Amplification test (NAAT)performed on the
[employer] platform.
Care Review
Plan reviewed with: Physician (Dr Yancy rivas)
[2024-02-08 10:59] VITALS: BP 107/67
[2024-02-08 11:01] VITALS: BP 107/67; BP 154/64; PULSE 72; O2SAT 97
[2024-02-08] MEDS: OMNICEF 300 MG PO (11:02)
--- NOTE | 2024-02-08 11:25 | CM ---
Patient seen bedside with spouse.
Patient for possible d/c home today.
IMM completed.
Plan: home with [facility]
--- NOTE | 2024-02-08 11:28 | W.PN.HOSP.TC ---
Today's Communication/Plan
-
po abx
dc home
Assessment / Plan
Assessment / Plan
#Acute hypoxic respiratory insufficiency secondary to bilateral lower lobe PNA
better, SaO2 97% on room air
#Generalized weakness secondary to bilateral lobe PNA/volume depletion
#Former smoker 10 years a pack a day quit 50 years ago
COVID-negative
-DuoNebs as needed
-Incentive spirometry
-Sputum culture, blood culture x 1 E.Coli, lactic acid 1.7, UA negative
-IV Rocephin, IV Zithromax
-IV NSS 80 cc an hour was given 1 L in ER concern for volume depletion elevated bun 29-->26
will stop IVF
-PT/OT
case management consult
E. Coli bacteremia from aspiration
call placed and discussed with Dr. Cooley.
Azithromycin stopped, continue Ceftriaxone and switch to po cefdinir
-
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
-I/O, daily weights
-GDMT
2D echo 09/09/2022: EF 55 to 60%, normal LVS/LV SF, no wall abnormalities, mild TR. 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
-Follows with [facility]
Speech Therapy consult: 1) Continuation of IDDSI level 6 and thin liquids
2) Aspiration precautions
3) Small, single bites and sips
4) Medications as tolerated (per RN whole with thin liquids)
5) Consideration of VSE if clinically indicated
reviewed with pt in front of , importance of careful eating, eat slowly and be attentive, was stressed to pt
#A-fib paroxysmal
-Continue Xarelto, continue amiodarone 100 mg daily
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
#HTN-benign
BP 117/60
-Continue valsartan 80 mg twice daily with hold parameters
#Prior alcohol abuse
-Stopped 1.5 years ago
#DVT/PE hx
-Patient is on Xarelto for paroxysmal A-fib
Other PMH:
Prostate cancer with radical prostatectomy
recurrent UTIs
COVID-08 May 2022
DVT prophylaxis
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
Full code
PT-Home VN.
d/w with ID
More than 30 minutes spent in discharge including
Final examination of the patient
Summarizing hospital stay
Instructions for continuing care to all relevant caregivers
Preparation of discharge records, prescriptions, and referral forms
Total time spent (in minutes): 50
Anticipated Discharge: Today
Subjective/Interval History
-
Date of Service: February 08, 2024
sitting in chair
feeling better
afebrile
Objective Data
-
Labs:
Laboratory Results
02/08/24
06:21
WBC 6.4
Hgb 13.1
Hct 37.1 L
Plt Count 152
Sodium 138
Potassium 4.2
Chloride 105
Carbon Dioxide 24
BUN 21 H
Creatinine 1.0
Glucose 92
Calcium 9.0
Total Bilirubin 0.4
AST 27
ALT 23
Alkaline Phosphatase 61
Vital Signs:
Vital Signs
Temp Pulse Resp BP Pulse Ox
97.5 F 72 18 107/67 99
02/08/24 10:59 02/08/24 10:59 02/08/24 10:59 02/08/24 10:59 02/08/24 10:59
I&O
02/07/24 02/08/24 02/09/24
06:59 06:59 06:59
Intake Total 1080 / 1080 1500 / 1500
Balance 1080 / 1080 1500 / 1500
--- NOTE | 2024-02-08 11:37 | W.DCSUMMARY ---
Discharge Summary
Discharge Data
Date of Admission: 02/05/24
Date of Discharge: 02/08/24
-
Pending Results: No
Hospital Course
89-year-old male past medical history of chronic heart failure, atrial fibrillation, pacemaker implantation, hypertension, DVT, PE history, Prostate cancer with radical prostatectomy, Former smoker, presented from home with complaints of feeling
weak. Patient was found to have acute hypoxic respiratory insufficiency. Patient underwent infectious workup. Blood cultures were drawn. Patient was started on IV ceftriaxone and Zithromax. Patient blood culture came back positive for E. coli.
Patient underwent CT abdomen pelvis with no acute source of finding. There was concern of suspected aspiration and patient was eval by speech therapy. Patient was continued on modified diet. Patient remained afebrile. Patient was stable on room
air. Patient with transition from IV ceftriaxone to p.o. cefdinir on discharge.
Discharge Plan
-
Patient Disposition: Home with Home Care
Discharge Diagnosis/Procedures: E. coli bacteremia
Possible aspiration versus translocation
Acute hypoxic respiratory insufficiency
Condition: Fair
Diet: 2 Gram Sodium, Restrict fluids to 48 oz and Other diet
Additional Diets: Recommendations:
1) Continuation of IDDSI level 6 and thin liquids
2) Aspiration precautions
3) Small, single bites and sips
4) Medications as tolerated (per RN whole with thin liquids)
Activity: With assistance and As tolerated
Driving Restrictions: As prior to admission
Referrals:
Les Heredia MD [Family Provider] - in less than 1 week
Prescriptions:
New
cefdinir 300 mg Capsule
300 mg PO Q12 4 Days Qty: 8 0RF
Continued
Xarelto 20 MG tablet
20 mg PO QPM
ascorbic acid (vitamin C) 500 mg Tablet
500 mg PO BID
valsartan 80 mg Tablet
80 mg PO BID
cholecalciferol (vitamin D3) [Vitamin D3] 125 mcg (5,000 unit) Tablet
125 mcg PO QPM
spironolactone 25 mg tablet
12.5 mg PO DAILY
cranberry 500 mg Capsule
500 mg PO BID
amiodarone 100 mg Tablet
100 mg PO DAILY
omega 3-igd-ran-fish oil [Fish Oil] 1,200 (144-216) mg Capsule
1 cap PO QPM
quercetin 500 mg Capsule
500 mg PO QPM
bumetanide 1 mg Tablet
1 mg PO DAILY
Discharge Orders:
Discharge Patient (As Directed); Ordered 02/08/24
Ordered By: Norm Haines
Discharge Date and Time
Discharge Date/Time: 02/08/24 12:30
Print Language: CAMEROONIAN
== END 2024-02-08 12:30 | disposition home health service (06) | DRG 178 ==
LOC: 4 WEST ACU 13:31
PROVIDERS: Clinical Nurse Specialist Family Health; Physician Assistant; ADMITTING PHYSICIAN Hospitalist; ATTENDING PHYSICIAN Hospitalist; CONSULT PHYSICIAN Student in an Organized Health Care Education/Training Program; EMERGENCY PHYSICIAN Emergency Medicine; FAMILY PHYSICIAN Internal Medicine Geriatric Medicine
DX: J69.0 Pneumonitis due to inhalation of food and vomit (principal); I50.32 Chronic diastolic (congestive) heart failure; J98.11 Atelectasis; R78.81 Bacteremia; I11.0 Hypertensive heart disease with heart failure; E78.5 Hyperlipidemia, unspecified; K57.30 Diverticulosis of large intestine without perforation or abscess without bleeding; I48.91 Unspecified atrial fibrillation; R09.02 Hypoxemia; R06.89 Other abnormalities of breathing; M19.012 Primary osteoarthritis, left shoulder; M19.011 Primary osteoarthritis, right shoulder; B96.20 Unspecified Escherichia coli [E. coli] as the cause of diseases classified elsewhere; E86.9 Volume depletion, unspecified; I48.0 Paroxysmal atrial fibrillation; I27.20 Pulmonary hypertension, unspecified; R68.89 Other general symptoms and signs; Z96.653 Presence of artificial knee joint, bilateral; Z79.01 Long term (current) use of anticoagulants; Z87.440 Personal history of urinary (tract) infections; Z85.46 Personal history of malignant neoplasm of prostate; Z86.16 Personal history of COVID-19; Z86.718 Personal history of other venous thrombosis and embolism; Z86.711 Personal history of pulmonary embolism; Z87.891 Personal history of nicotine dependence; Z82.5 Family history of asthma and other chronic lower respiratory diseases; Z81.1 Family history of alcohol abuse and dependence; Z88.2 Allergy status to sulfonamides; Z11.52 Encounter for screening for COVID-19
CPT/HCPCS: 71046; 71250; 74176; 80053; 81003; 83605; 85025; 87040; 87149; 87186; 87205; 87502; 87811; 92526; 92610; 93005; 96361; 96374; 96375; 97116; 97162; 97166; 97530; 99285

== ENCOUNTER → 2024-06-15 13:08 | Outpatient (REF) | payer MEDICARE, SELFPAY | LOC: RAD 13:08 | PROVIDERS: ATTENDING PHYSICIAN Internal Medicine Cardiovascular Disease; FAMILY PHYSICIAN Internal Medicine Geriatric Medicine | DX: I48.0 Paroxysmal atrial fibrillation (principal) | CPT/HCPCS: 71046 ==

== ENCOUNTER → 2024-11-03 13:34 | Outpatient (REF) | payer MEDICARE, SELFPAY | LOC: RAD 13:34 | PROVIDERS: ATTENDING PHYSICIAN Nurse Practitioner Family; FAMILY PHYSICIAN Internal Medicine Geriatric Medicine | DX: M79.672 Pain in left foot (principal) | CPT/HCPCS: 73630 ==

== ENCOUNTER 2024-12-07 17:35 | Observation (INO) | payer MEDICARE, SELFPAY ==
[2024-12-07 14:12] VITALS: BP 185/107
--- NOTE | 2024-12-07 14:53 | ED.GENMED ---
History of Present Illness
General
Chief Complaint: Back Pain
Source: patient
Time Seen by Provider: 12/07/24 14:39
History of Present Illness
History of Present Illness:
89-year-old male with past medical history of atrial fibrillation, CHF, previous DVT/PE, hypertension, hyperlipidemia, prostate cancer status post prostatectomy presenting to the emergency department with EMS from home for evaluation of severe lower
back pain that began around 3 AM spontaneously no relief with Tylenol 1 g at 5 AM, pain seems to be worse with movement. Overall pain is constant, dull aching sensation, nonradiating. Patient states normally he does not get back pain. He states
he cannot think of any potential cause for his back pain although he did state he felt maybe he was dehydrated as he did not drink much yesterday but when questioned patient states that he drank the same amount that he normally does even though he
knows it is normally not enough. Patient denies any fevers, bowel changes, urinary, chest pain or shortness of breath, abdominal pain, nausea, vomiting, focal weakness or numbness. Social history was noted for patient living with his at home.
Otherwise noncontributory.
Past History
Past History
ED Past Medical History: Arrthythmia, Cancer (Prostate CA), CHF, HTN and Other (DVT, PE, COVID-19 URI April 2022)
ED Past Surgical History: Orthopedic (Bilateral knee replacements) and Other (Hernia repair, Prostatectomy, Left lid lid loading ( weights to help make the eye lid close)
Social History
Tobacco: Former smoker
Alcohol: Daily
Drug: None
Personal:
Living: with family
Employment: Retired
Review of Systems
Review of Systems
All Other Systems: ROS reviewed and negative except as documented in HPI and ROS
Phy Exam
Physical Exam
Physical Exam:
GENERAL: Alert , in no apparent distress when laying flat however with any attempted movement patient is very uncomfortable and overall having a hard time performing any movements
EYE: clear conjunctiva b/l
HEAD: NCAT
ENT: o/p clr, mmm.
CARDIAC: Regular rate and rhythm .
LUNGS: Clear breath sounds bilaterally, no acute respiratory distress, no wheezes/rales/rhonchi
ABDOMEN: Soft, without focal tenderness, no r/g, no cvat,
BACK: No focal areas of tenderness, no rashes, very limited range of motion secondary to pain
NEUROLOGICAL: Alert and oriented, sensation of the lower extremities is intact and equal bilaterally, negative straight leg raise
SKIN: Warm and dry, skin intact.
MUSCULOSKELETAL: No edema, well perfused. EHL intact bilateral
PSYCH: Normal and appropriate interaction.
Scores
Heart Failure Risk
Heart Failure Risk Score: Not Applicable
Heart Score for Chest Pain Patients
STEMI patient?: Not applicable
Withdrawal Assessment of Alcohol
Withdrawal Assessment Completed?: Not applicable
Course
Orders/Labs/Results
Orders:
Orders
12/07/24 14:47
Urinalysis Reflex To Culture Urgent
12/07/24 14:52
CT Abd/pelvis W Iv Cont Urgent
Comment:
Reason For Exam: diffuse lower back pain, hx prostate ca,on xarelto
Morphine Sulfate 4 mg IV NOW STA
12/07/24 15:04
Type+Screen Urgent
Complete Blood Count/With Diff Urgent
Comprehensive Metabolic Panel Urgent
Lipase Urgent
PTT Urgent
Prothrombin Time Urgent
12/07/24 15:45
ABO2 Urgent
BBK Wristband Number:
Associate notified that ABO2 has been ordered: [id number]
Date: 12/07/24
Time: 15:28
System Administration Advisor ID: [id number]
12/07/24 16:27
Physical Therapy Consult [Pt Eval And Treat] Urgent
Activity Level: Ambulate
12/07/24 16:35
Baclofen [Lioresal] 10 mg PO NOW STA
Abnormal Lab Results
12/07/24
15:04
WBC 10.9 H 10^3/uL
(4.8-10.8)
RBC 4.66 L 10^6/uL
(4.70-6.10)
MCH 31.5 H pg
(27.0-31.0)
Abs Immat Gran (auto) 0.1 H 10^3/uL
(0-0.05)
Absolute Neuts (auto) 10.2 H 10^3/uL
(1.4-6.5)
Absolute Lymphs (auto) 0.3 L 10^3/uL
(1.2-3.4)
Neutrophils % 93.6 H %
(42.2-75.2)
Lymphocytes % 3.0 L %
(20.5-51.1)
PT 18.2 H Sec
(11.4-14.6)
BUN 24 H mg/dl
(9-20)
Glucose 121 H mg/dl
(70-99)
Total Protein 8.3 H g/dl
(6.3-8.2)
12/07/24 15:04
12/07/24 15:04
Vital Signs
Initial and Last Documented VS:
Initial Vital Signs
Temp Pulse Resp BP Pulse Ox
98.9 F 84 18 185/107 95
12/07/24 14:12 12/07/24 14:12 12/07/24 14:12 12/07/24 14:12 12/07/24 14:12
Last Documented Vital Signs
Temp Pulse Resp BP Pulse Ox
98.9 F 69 18 185/107 94
12/07/24 14:12 12/07/24 15:13 12/07/24 14:12 12/07/24 14:12 12/07/24 15:13
Dish Person consulted with Physician
Dish Person consulted with physician?: Yes
Name of Physician Consulted: Estela
MDM/Problems Addressed
Differential Diagnosis Includes:
Musculoskeletal back pain
Complication with aorta/dissection/aneurysm
Spontaneous retroperitoneal hemorrhage secondary to Xarelto
Infectious etiology such as osteomyelitis/discitis
Pancreatitis
Complications from previous prostate cancer
Pathologic fracture of the lumbar spine
MDM/Problems Addressed:
89-year-old male presenting to the ER for evaluation of lower back pain that began at 3 AM, no exacerbating or alleviating factors. Appears quite uncomfortable here. Significant hypertension noted by EMS as well as on arrival here vitals otherwise
within normal limits. Given his age combined with chronic medical conditions and medication use will obtain CT imaging to further evaluate. Labs ordered, urine ordered. Morphine for pain control.
Chronic conditions affecting care: Arrhythmia (Atrial fibrillation on Xarelto) and Other (DVT/PE)
*Radiology
Radiology exam reviewed: radiology read reviewed
*Pulse Oximetry
SaO2: 95
Oxygen Mode of Delivery: Room air
Patient hypoxic: no
*Critical Care Note
Total Time (30-74mins, 75-104mins- exclusive of procedures): Not Applicable
Patient Management
Discussion with other providers: Hospitalist
Escalation/DeEscalation of care consider admission/obs:
Patient's labs reassuring and rate around baseline. CT is overall unchanged from scan done in January of last year and without any acute findings. He has continued pain despite IV pain medication administered to him and is still unable to
ambulate. Patient has been wearing depends today due to the inability to ambulate to the bathroom. At this time he is not safe to be discharged home, unable to care for him at. Will plan to admit to hospitalist service for continued pain
management, physical therapy consult and patient may need to be dispositioned to longterm facility for further pain control until able to be dispositioned back home. Hospitalist team notified and accepts for ration and treatment.
ED Attending Note
-
Portions of this chart may have been created with voice recognition software.� Occasional wrong word or��sound alike� substitutions may have occurred due to the inherent limitations of voice recognition software.
Discharge Plan
Departure
Patient Disposition: Admit
Date of Disposition: 12/07/24
Time of Disposition: 16:35
Presentation/result/management discussed w/ accepting MD/DO: Hospitalist
Discharge Problem:
Dorsalgia
Prescriptions:
No Action
rivaroxaban [Xarelto] 20 MG tablet
20 mg PO QPM
ascorbic acid (vitamin C) 500 mg Tablet
500 mg PO BID
valsartan 80 mg Tablet
80 mg PO BID
cholecalciferol (vitamin D3) [Vitamin D3] 125 mcg (5,000 unit) Tablet
125 mcg PO QPM
spironolactone 25 mg tablet
12.5 mg PO DAILY
cranberry 500 mg Capsule
500 mg PO BID
amiodarone 100 mg Tablet
100 mg PO DAILY
quercetin 500 mg Capsule
500 mg PO QPM
bumetanide 1 mg Tablet
1 mg PO DAILY
Referrals:
Les Heredia MD [Family Provider, Internal Medicine]
Interventions
Interventions:
*Risk Screen - Suicide Last Done: 12/07/24 14:12
*General Assessment Last Done: 12/07/24 14:12
*Neglect/Abuse Screening Last Done: 12/07/24 14:12
*ED- Fall Risk Assessment Last Done: 12/07/24 15:10
*ED COVID-19 Vaccine History Last Done: 12/07/24 15:10
ED-Musculoskeletal Assessment Last Done: 12/07/24 15:10
Discharge Date and Time
Print Language: ANDORRAN
[2024-12-07] MEDS: MORPHINE SULFATE 4 MG IV (15:10)
[2024-12-07 15:16] LABS: Hematocrit 43.2 % (39.0-52.0); Hemoglobin 14.7 g/dL (13.0-18.0); Mean Corp Hgb Conc. 34.0 g/dL (33.0-37.0); Mean Corpuscular Volume 92.7 fL (80.0-94.0); Nucleated Red Blood Cells % 0 % (-); Platelet Count 197 10^3/uL (130-400); Red Cell Dist. Width 13.6 % (11.5-14.5)
[2024-12-07 15:26] LABS: APTT 31.9 Sec (23.4-35.0); INR 1.45; PT 18.2 Sec (11.4-14.6)
[2024-12-07 15:44] LABS: ALT (SGPT) 23 U/L (0-50); AST (SGOT) 27 U/L (17-59); Albumin 4.7 g/dl (3.5-5.0); Alkaline Phosphatase 64 U/L (38-126); Blood Urea Nitrogen 24 mg/dl (9-20); Calcium 9.5 mg/dl (8.4-10.2); Carbon Dioxide 22 mmol/L (22-30); Chloride 103 mmol/L (98-107); Glucose 121 mg/dl (70-99); Lipase 42 U/L (23-300); Potassium 5.0 mmol/L (3.5-5.1); Sodium 135 mmol/L (135-145); Total Protein 8.3 g/dl (6.3-8.2); eGFR > 60.00
--- NOTE | 2024-12-07 16:57 | HPS.HSE ---
Family Physician
-
Family Physician: Les Heredia
Chief Complaint
-
Intractable back pain
History of Present Illness
Patient is pleasant 89 years old with history of A-fib, CHF, previous DVT/PE, hypertension, hyperlipidemia, prostate cancer, who came to the ER today with sudden onset lower back pain which started 2 AM without relief, increased with movement, no
lower extremity weakness or numbness, pain is constant but comes and episodes, no previous similar events.
Patient denies bowel or bladder incontinence, denies abdominal pain, no chest pain or shortness of breath, no recent fever or chills.
Patient had CT abdomen pelvis done in the ER which was unremarkable.
Patient will be admitted under hospitalist service.
Medical History
Past Medical History
Past Medical History: Reports Other
Additional Past Medical History:
A-fib on Xarelto
CHFpEF 55-60%
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
HTN
Daily alcohol use
DVT/PE
Prostate cancer with radical prostatectomy
recurrent UTIs
COVID-08 May 2022
former smoker,
Past Surgical History: Reports Other
Additional Past Surgical History:
Bilateral knee replacements
Hernia repair
Prostatectomy
Left eyelid loading surgery to help lid close
Social History
Tobacco: Former Smoker (10 years 1/2 ppd quit 50 years ago)
Alcohol: Former (stopped 1.5 years ago)
Drug: None
Family History
Family History: Other (Father complications COPD, alcohol abuse mother unsure)
Allergies / Home Medications
Allergies reflects when Allergies were last updated in [employer].
Home Medications with original date entered in [employer]
Allergy/Medication List:
Allergies
Allergy/AdvReac Type Severity Reaction Status Date / Time
epoxy resin Allergy facial Verified 12/07/24 14:12
swelling
Sulfa (Sulfonamide Allergy Hives Verified 12/07/24 14:12
Antibiotics)
Home Medications
rivaroxaban 20 mg tablet (Xarelto) 20 mg PO QPM Blood clot prevention/tx 09/09/21
ascorbic acid (vitamin C) 500 mg tablet 500 mg PO BID Supplement 05/07/22
cholecalciferol (vitamin D3) 125 mcg (5,000 unit) tablet (Vitamin D3) 125 mcg PO QPM Supplement 07/29/22
valsartan 80 mg tablet 80 mg PO BID Blood pressure 07/29/22
cranberry 500 mg capsule 500 mg PO BID Supplement 10/30/22
spironolactone 25 mg tablet 12.5 mg PO DAILY Blood Pressure 10/30/22
amiodarone 100 mg tablet 100 mg PO DAILY Heart Disease/Condition 05/29/23
quercetin 500 mg capsule 500 mg PO QPM Supplement 06/16/23
bumetanide 1 mg tablet 1 mg PO DAILY Fluid Retention/Swelling 02/05/24
Review of Systems
-
A 12 point ROS was completed and negative except as noted: Yes
Constitutional: Denies Fever, Weight Gain, Weight Loss, Fatigue or Sleep Disturbance
EENT: Denies Tearing, Sore Throat, Mouth Pain, Mouth Swelling or Runny Nose
Respiratory: Denies Cough, Hemoptysis or Trouble Breathing
Cardiac: Denies Chest Pain, Diaphoresis, Palpitations or Syncope
Abdomen/GI: Denies Abdominal Pain, Nausea, Vomiting, Diarrhea, Constipated, Bloody Stools or Black Stools
: Denies Dysuria, Frequency, Flank Pain, Incontinence, Difficulty Voiding, Urgency, Bleeding or Dark Urine
Musculoskeletal: Reports See HPI, Muscle Stiffness and Other (Back pain); Denies Joint Pain, Joint Swelling, Muscle Pain or Edema
Skin: Denies Itching or Rash
Neurological: Denies Dizzy, Headache, Weakness or Numbness
Endocrine: Denies Polyuria, Polydipsia or Temp Intolerance
Hematologic/Lymphatic: Denies Bleeding, Swollen Glands or Bruising
Psych: Reports Calm; Denies Depression, Anxiety or Panic Disorder
Physical Exam
Vital Signs
Vital Signs
Temp Pulse Resp BP Pulse Ox
98.9 F 69 18 185/107 94
12/07/24 14:12 12/07/24 15:13 12/07/24 14:12 12/07/24 14:12 12/07/24 15:13
Physical Exam
General: Well Developed, Well Nourished, No Apparent Distress, Comfortable and Good Appetite; No Pain, Chills or Sweats
HEENT: NormoCephalic, Moist mucous membranes, Atraumatic, Good Dentition, PERRLA, Nose Appears Normal and Ears Appear Normal
Respiratory: Clear
Cardiac: S1/S2 and Irregular Rhythm
Breast: Deferred by me
GI: Soft, Non Tender, Non Distended and Normal Bowel Sounds
Genito-urinary: Deferred by me
Musculoskeletal: No Clubbing, No Cyanosis, No Edema and Other (Severe backwinder)
Skin: Warm; No Rash, Jaundice, Ulcers, Lesions or Decubitus Ulcers
Neuro: Awake, Alert, Oriented, AO x 3, No Motor Deficits, Nonfocal/grossly intact and Cranial Nerves Intact
Hematologic/Lymphatic: No Lymphadenopathy
Psych: Calm
Laboratory Results
-
12/07/24 15:04
12/07/24 15:04
Laboratory Results
PT 18.2 Sec (11.4-14.6) H 12/07/24 15:04
INR 1.45 12/07/24 15:04
APTT 31.9 Sec (23.4-35.0) 12/07/24 15:04
Total Bilirubin 0.9 mg/dl (0.2-1.3) 12/07/24 15:04
AST 27 U/L (17-59) 12/07/24 15:04
ALT 23 U/L (0-50) 12/07/24 15:04
Alkaline Phosphatase 64 U/L (38-126) 12/07/24 15:04
Lipase 42 U/L (23-300) 12/07/24 15:04
Data Reviewed
-
Diagnostic Radiology: Report Reviewed by me
CT Scan: Report Reviewed by me
Medical Tests (Nuc Med, Echo, EKG etc): Report Reviewed by me
Lab Data: Labs Reviewed by me
Old Records: Reviewed
Impression/Plan
-
Impression:
Patient is pleasant 89 years old with history of A-fib, CHF, previous DVT/PE, hypertension, hyperlipidemia, prostate cancer, who came to the ER today with sudden onset lower back pain which started 2 AM without relief, increased with movement, no
lower extremity weakness or numbness, pain is constant but comes and episodes, no previous similar events.
Patient denies bowel or bladder incontinence, denies abdominal pain, no chest pain or shortness of breath, no recent fever or chills.
Patient had CT abdomen pelvis done in the ER which was unremarkable.
Assessment/plan:
Intractable lower back pain
CT abdomen pelvis done in the ER showed:
Moderate volume stool filling the rectum without gross accompanying inflammatory changes. Limited evaluation of intestinal tract without oral contrast, without intestinal obstruction, free air or focal right lower quadrant inflammatory changes.
Diverticulosis, most prominent involving the descending colon and sigmoid.
Prior prostatectomy again noted.
Rim calcified low attenuation right pelvic sidewall lesion stable in size and configuration in comparison to prior CTA likely a seroma or lymphocele.
Bilateral simple renal cysts and additional subcentimeter low-attenuation renal lesions too small to characterize. Symmetric renal excretion.
Obtain x-ray lumbar spine.
If patient has persistent pain to consider MRI lumbar spine.
Multi-modal pain regimen, muscle relaxant, start dexamethasone.
Physical therapy and nutritional therapy consult.
Chronic CHFpEF 55-60%
No sign of acute excessive
2D echo 09/09/2022: EF 55 to 60%, normal LVS/LV SF, no wall abnormalities, mild TR. 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
Continue home Bumex/Aldactone
Mild leukocytosis.
Possibly reactive
Mild hyperglycemia, no history of diabetes.
Continue to monitor
Paroxysmal A-fib
-Continue Xarelto, continue amiodarone 100 mg daily
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
History of hypertension
Blood pressure elevated in the ER possible secondary to pain
Continue valsartan 80 mg twice daily with hold parameters
Prostate cancer with radical prostatectomy
Urinalysis pending
CODE STATUS: Full code
DVT prophylaxis: Xarelto
Diet: Regular diet
Total time spent on today's encounter was 75 minutes which included time spent in counseling the patient/family regarding diagnosis and treatment plan as listed above, goals of care, and symptom management. Case was discussed with nursing staff,
specialists, and care coordinators/case management. All labs and imaging personally reviewed by me. Remainder the time spent in detailed review of previous records, lab data, imaging, and other medical provider documentation.
[2024-12-07] MEDS: LIORESAL 10 MG PO (16:58)
[2024-12-07 17:57] VITALS: BP 172/92
[2024-12-07 18:57] VITALS: BP 173/86
[2024-12-07 19:57] VITALS: BP 184/91; BMI 31.1
--- NOTE | 2024-12-07 20:13 | PTCARENOTE ---
Recieved pt. from ED. Pt was pulled over from the stretcher. Pt is AAOx3, BP elevated 184/91, c/o of pain. see mar. Pt oriented to unit. Call eubanks within reach. Bed alarm on. Pt care ongoing.
[2024-12-07 20:28] VITALS: BMI 31.1
[2024-12-07] MEDS: ULTRAM 50 MG PO (20:32)
[2024-12-07] MEDS: DECADRON 6 MG IV (20:33)
[2024-12-07] MEDS: VITAMIN C 500 MG PO (20:33)
[2024-12-07] MEDS: VITAMIN D3 (cholecalciferol) 125 MCG PO (20:33)
[2024-12-07] MEDS: XARELTO 20 MG PO (20:33)
[2024-12-07] MEDS: DIOVAN 80 MG PO (21:18)
[2024-12-07 22:58] LABS: Urine Character Clear (Clear)
[2024-12-07 23:14] LABS: Urine White Cell 0-2 /HPF (0-5)
[2024-12-07 23:31] VITALS: BP 150/87
[2024-12-08] MEDS: MORPHINE SULFATE 4 MG IV (01:37)
[2024-12-08] MEDS: DECADRON 6 MG IV (03:23)
[2024-12-08 04:00] VITALS: BP 160/77
[2024-12-08 06:00] VITALS: BMI 31.1
[2024-12-08 07:30] LABS: Hematocrit 43.6 % (39.0-52.0); Hemoglobin 14.9 g/dL (13.0-18.0); Mean Corp Hgb Conc. 34.2 g/dL (33.0-37.0); Mean Corpuscular Volume 91.8 fL (80.0-94.0); Platelet Count 214 10^3/uL (130-400); Red Cell Dist. Width 13.4 % (11.5-14.5)
[2024-12-08 07:50] VITALS: BP 131/77
[2024-12-08 07:55] LABS: Blood Urea Nitrogen 23 mg/dl (9-20); Calcium 9.7 mg/dl (8.4-10.2); Carbon Dioxide 24 mmol/L (22-30); Chloride 103 mmol/L (98-107); Estimated Creatinine Clearance 71 ml/min; Glucose 130 mg/dl (70-99); Potassium 4.4 mmol/L (3.5-5.1); Sodium 135 mmol/L (135-145); eGFR > 60.00
[2024-12-08] MEDS: DIOVAN 80 MG PO (08:44)
[2024-12-08] MEDS: ALDACTONE 12.5 MG PO (08:45)
[2024-12-08] MEDS: VITAMIN C 500 MG PO (08:45)
[2024-12-08] MEDS: BUMEX 1 MG PO (08:45)
[2024-12-08] MEDS: PACERONE 100 MG PO (08:45)
[2024-12-08 09:09] VITALS: BP 131/70; PULSE 88; O2SAT 95
--- NOTE | 2024-12-08 09:41 | W.PN.HOSP.TC ---
Today's Communication/Plan
-
Discharge home today
Assessment / Plan
Assessment / Plan
Impression:
Patient is pleasant 89 years old with history of A-fib, CHF, previous DVT/PE, hypertension, hyperlipidemia, prostate cancer, who came to the ER today with sudden onset lower back pain which started 2 AM without relief, increased with movement, no
lower extremity weakness or numbness, pain is constant but comes and episodes, no previous similar events.
Patient denies bowel or bladder incontinence, denies abdominal pain, no chest pain or shortness of breath, no recent fever or chills.
Patient had CT abdomen pelvis done in the ER which was unremarkable.
Pain improved with steroid, muscle relaxant.
Assessment/plan:
Intractable lower back pain
CT abdomen pelvis done in the ER showed:
Moderate volume stool filling the rectum without gross accompanying inflammatory changes. Limited evaluation of intestinal tract without oral contrast, without intestinal obstruction, free air or focal right lower quadrant inflammatory changes.
Diverticulosis, most prominent involving the descending colon and sigmoid.
Prior prostatectomy again noted.
Rim calcified low attenuation right pelvic sidewall lesion stable in size and configuration in comparison to prior CTA likely a seroma or lymphocele.
Bilateral simple renal cysts and additional subcentimeter low-attenuation renal lesions too small to characterize. Symmetric renal excretion.
Obtain x-ray lumbar spine.
If patient has persistent pain to consider MRI lumbar spine.
Multi-modal pain regimen, muscle relaxant, start dexamethasone.
Physical therapy and nutritional therapy consult.
Chronic CHFpEF 55-60%
No sign of acute excessive
2D echo 09/09/2022: EF 55 to 60%, normal LVS/LV SF, no wall abnormalities, mild TR. 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
Continue home Bumex/Aldactone
Mild leukocytosis.
Possibly reactive
Mild hyperglycemia, no history of diabetes.
Continue to monitor
Paroxysmal A-fib
-Continue Xarelto, continue amiodarone 100 mg daily
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
History of hypertension
Blood pressure elevated in the ER possible secondary to pain
Continue valsartan 80 mg twice daily with hold parameters
Prostate cancer with radical prostatectomy
Urinalysis pending
CODE STATUS: Full code
DVT prophylaxis: Xarelto
Diet: Regular diet
Disposition: Home today
Total time spent on today's encounter was 35 minutes which included time spent in counseling the patient/family regarding diagnosis and treatment plan as listed above, goals of care, and symptom management. Case was discussed with nursing staff,
specialists, and care coordinators/case management. All labs and imaging personally reviewed by me. Remainder the time spent in detailed review of previous records, lab data, imaging, and other medical provider documentation.
Anticipated Discharge: Today
Subjective/Interval History
-
Date of Service: December 08, 2024
Patient seen and examined at bedside, denies any chest pain or shortness of breath, no abdominal pain, no nausea, no vomiting, no diarrhea or constipation.
Objective Data
-
Labs:
Laboratory Results
12/08/24
07:08
WBC 9.3
Hgb 14.9
Hct 43.6
Plt Count 214
Sodium 135
Potassium 4.4
Chloride 103
Carbon Dioxide 24
BUN 23 H
Creatinine 1.0
Glucose 130 H
Calcium 9.7
Vital Signs:
Vital Signs
Temp Pulse Resp BP Pulse Ox
97.9 F 71 20 131/77 93
12/08/24 07:50 12/08/24 07:50 12/08/24 07:50 12/08/24 07:50 12/08/24 07:50
I&O
12/07/24 12/08/24 12/09/24
06:59 06:59 06:59
Output Total 500 / 500
Balance -500 / -500
Physical Exam
-
General: Well Developed, Well Nourished, No Apparent Distress and Comfortable
HEENT: Normocephalic, Atraumatic, Moist Mucous Membranes, No Ptosis, PERRLA and Nose Appears Normal
Respiratory: Clear to Auscultation and Non Labored Respirations
Cardiac: Regular Rhythm and S1/S2
Breast: Deferred by me
GI: Soft, Nontender, Nondistended and Normal Bowel Sounds
Genito-urinary: No Costovertebral Tender
Musculoskeletal: No Clubbing, No Cyanosis and No Edema
Skin: Warm
Neuro: Awake, Alert, Oriented, AO x 3 and No Motor Deficits
Psych: Calm
Data Reviewed
-
Diagnostic Radiology: Image personally visualized and interpreted and Report Reviewed by me
CT Scan: Image personally visualized and interpreted and Report Reviewed by me
Ultrasound: Image personally visualized and interpreted and Report Reviewed by me
MRI: Image personally visualized and interpreted and Report Reviewed by me
Medical Tests (Nuc Med, Echo etc): Image personally visualized and interpreted and Report Reviewed by me
Labs: Labs Reviewed by me
Old Records: Reviewed
--- NOTE | 2024-12-08 09:47 | W.DCSUMMARY ---
Discharge Summary
Discharge Data
Date of Admission: 12/07/24
Date of Discharge: 12/08/24
Total time spent discharging patient (in min): 40
-
Pending Results: No
Hospital Course
Hospital course
Patient is pleasant 89 years old with history of A-fib, CHF, previous DVT/PE, hypertension, hyperlipidemia, prostate cancer, who came to the ER today with sudden onset lower back pain which started 2 AM without relief, increased with movement, no
lower extremity weakness or numbness, pain is constant but comes and episodes, no previous similar events.
Patient denies bowel or bladder incontinence, denies abdominal pain, no chest pain or shortness of breath, no recent fever or chills.
Patient had CT abdomen pelvis done in the ER which was unremarkable.
Pain improved with steroid, muscle relaxant.
During hospitalization patient was treated from the following
Intractable lower back pain
CT abdomen pelvis done in the ER showed:
Moderate volume stool filling the rectum without gross accompanying inflammatory changes. Limited evaluation of intestinal tract without oral contrast, without intestinal obstruction, free air or focal right lower quadrant inflammatory changes.
Diverticulosis, most prominent involving the descending colon and sigmoid.
Prior prostatectomy again noted.
Rim calcified low attenuation right pelvic sidewall lesion stable in size and configuration in comparison to prior CTA likely a seroma or lymphocele.
Bilateral simple renal cysts and additional subcentimeter low-attenuation renal lesions too small to characterize. Symmetric renal excretion.
Obtain x-ray lumbar spine.
If patient has persistent pain to consider MRI lumbar spine.
Multi-modal pain regimen, muscle relaxant, start dexamethasone.
Physical therapy and nutritional therapy consult.
Chronic CHFpEF 55-60%
No sign of acute excessive
2D echo 09/09/2022: EF 55 to 60%, normal LVS/LV SF, no wall abnormalities, mild TR. 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
Continue home Bumex/Aldactone
Mild leukocytosis.
Possibly reactive
Mild hyperglycemia, no history of diabetes.
Continue to monitor
Paroxysmal A-fib
-Continue Xarelto, continue amiodarone 100 mg daily
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
History of hypertension
Blood pressure elevated in the ER possible secondary to pain
Continue valsartan 80 mg twice daily with hold parameters
Prostate cancer with radical prostatectomy
Urinalysis pending
CODE STATUS: Full code
DVT prophylaxis: Xarelto
Diet: Regular diet
Disposition: Home today
Total time spent on today's encounter was 40 minutes which included time spent in counseling the patient/family regarding diagnosis and treatment plan as listed above, goals of care, and symptom management. Case was discussed with nursing staff,
specialists, and care coordinators/case management. All labs and imaging personally reviewed by me. Remainder the time spent in detailed review of previous records, lab data, imaging, and other medical provider documentation.
Anticipated Discharge: Today
Discharge Plan
-
Patient Disposition: Home with Home Care
Discharge Diagnosis/Procedures: Intractable lower back pain.
Chronic diastolic CHF.
Paroxysmal A-fib
Diet: Low Cholesterol and Low Sodium
Activity: With assistance and As tolerated
Other Services: PT and OT
Referrals:
Les Heredia MD [Family Provider, Internal Medicine]
Prescriptions:
New
cyclobenzaprine 10 mg Tablet
10 mg PO Q8HPRN PRN (Reason: muscle spasm) Qty: 20 0RF
methylprednisolone [Medrol (Stone)] 4 mg tablets,dose pack
See Rx Instructions .ROUTE .COMPLEX Qty: 21 0RF
Rx Instructions:
for 6 days
Continued
rivaroxaban [Xarelto] 20 MG tablet
20 mg PO QPM
ascorbic acid (vitamin C) 500 mg Tablet
500 mg PO BID
valsartan 80 mg Tablet
80 mg PO BID
cholecalciferol (vitamin D3) [Vitamin D3] 125 mcg (5,000 unit) Tablet
125 mcg PO QPM
spironolactone 25 mg tablet
12.5 mg PO DAILY
cranberry 500 mg Capsule
500 mg PO BID
amiodarone 100 mg Tablet
100 mg PO DAILY
quercetin 500 mg Capsule
500 mg PO QPM
bumetanide 1 mg Tablet
1 mg PO DAILY
Discharge Orders:
Discharge Patient (As Directed); Ordered 12/08/24
Ordered By: Dee Ramires
Discharge Date and Time
Print Language: ESTONIAN
--- NOTE | 2024-12-08 10:04 | CM ---
CM reviewed chart, patient seen bedside, initial assessment completed. Patient resides with his in a three story home, first floor set up, three steps to enter. Patient reports having a cane, walker, and rollator at home (if needed). Patient
reports hx with [facility], discussed therapy recommendations of home health and patient agreeable to referral to [facility], placed in [facility]. Patient denies SNF hx. PCP Les Heredia, pharmacy [facility], confirms prescription coverage.
Patient denies insecurities at home. SPIVE[facility] form verbally reviewed, provided with copy, placed in chart. Patient reports his will provide transport home around 11:30 a.m. CM will continue to follow for all discharge planning needs.
Plan; home with referral to [facility]
[2024-12-08 11:15] VITALS: BP 106/69
== END 2024-12-08 12:34 | disposition home health service (06) ==
LOC: 4 WEST ACU 17:35
PROVIDERS: Physician Assistant Medical; ADMITTING PHYSICIAN General Practice; EMERGENCY PHYSICIAN Emergency Medicine; FAMILY PHYSICIAN Internal Medicine Geriatric Medicine
DX: M54.50 Low back pain, unspecified (principal); I11.0 Hypertensive heart disease with heart failure; E78.5 Hyperlipidemia, unspecified; I48.0 Paroxysmal atrial fibrillation; D72.829 Elevated white blood cell count, unspecified; I50.32 Chronic diastolic (congestive) heart failure; R73.9 Hyperglycemia, unspecified; N28.1 Cyst of kidney, acquired; K57.30 Diverticulosis of large intestine without perforation or abscess without bleeding; I27.20 Pulmonary hypertension, unspecified; Z95.0 Presence of cardiac pacemaker; Z85.46 Personal history of malignant neoplasm of prostate; Z87.891 Personal history of nicotine dependence; Z96.653 Presence of artificial knee joint, bilateral; Z79.01 Long term (current) use of anticoagulants; Z79.899 Other long term (current) drug therapy; Z90.79 Acquired absence of other genital organ(s); Z86.718 Personal history of other venous thrombosis and embolism; Z86.711 Personal history of pulmonary embolism; Z87.440 Personal history of urinary (tract) infections; Z86.16 Personal history of COVID-19; Z83.6 Family history of other diseases of the respiratory system; Z81.1 Family history of alcohol abuse and dependence; Z88.2 Allergy status to sulfonamides; Z91.048 Other nonmedicinal substance allergy status
CPT/HCPCS: 72110; 74177; 80048; 80053; 81003; 81015; 83690; 85025; 85027; 85610; 85730; 86850; 86900; 86901; 96374; 97163; 97166; 99285; G0378; Q9967

== ENCOUNTER → 2025-02-02 14:17 | Outpatient (REF) | payer MEDICARE, SELFPAY | LOC: RAD 14:17 | PROVIDERS: ATTENDING PHYSICIAN Internal Medicine Cardiovascular Disease; FAMILY PHYSICIAN Internal Medicine Geriatric Medicine | DX: I48.0 Paroxysmal atrial fibrillation (principal) | CPT/HCPCS: 71046 ==